=== PATIENT | female | born 1960 | race Caucasian/White ===

== ENCOUNTER 2019-08-14 21:57 | Emergency (ER) | payer MEDICARE, OTHER ==
[~2019-08-14] VITALS: Ht 157.5 cm; Wt 64.1 kg
[2019-08-14] MEDS ORDERED: NS IV 1000 ML 1,000 ML IV ONE (22:30)
--- NOTE | 2019-08-14 22:38 | ED Neurological Problem ---
General Chief Complaint: Respiratory Problems Stated Complaint: RIGHT SIDE OF FACE NUMB/TROUBLE BREATHING Nursing Triage Note: pt states soa started 1 hr ago while out walking her dog, pt states she walked to a friends house 30 minutes ago with co tongue numbness. pt states she has been off of her bipolar medication for 1 month Nursing Sepsis Screen: No Definite Risk Source: patient, family History of Present Illness Date Seen by Provider: Aug 14, 2019 Time Seen by Provider: 22:02 Initial Comments 59-year-old female presents to the emergency room. Approximately one hour ago the patient was walking her dog and said that she experienced right-sided weakness and right numbness of her tongue and face. She has no prior history of trauma and no prior history of similar events. She states that her father at the age of 41 after 7 strokes. Patient has stopped taking her medication for her bipolar psychoses about one month ago. Patient admits to having some kind of cardiac problem but has no recollection as to what problem she had. Her EKG does show abnormal R-wave progression with early transition and inferior wall IL because of a Q-wave in RF and III. patient continues reports that she has numbness on her right face but has no upper extremity drift and holding her arms up no abnormality on evaluation of cranial nerves and no discoordination on assessment in the exam room. Patient has given informed consent for diagnostic and therapeutic services. Should be noted that this dictation utilizes [employer] software. Evidence of been made to review all errors however some errors have been able to penetrate the review process. This is not an intentional event. If there is any questions regarding this dictation please contact Dominik Salguero DO Location Injury Occurred: old side while walking her dog Timing/Duration: 1 hour Severity: mild Associated Symptoms: confusion, fatigue, weakness, other (patient reports some sensation of right-sided weakness and paresthesias especially on her right ton annette and her right face) Labs are starting to come in patient's lactic acid is 2.55 consistent with dehydration. She has no evidence of infection. CT scan without infusion reveals no hemorrhage no edema involutional changes or old lacunar changes. Ventricles no ventriculomegaly bones and joints no acute fracture or soft tissues unremarkable sinuses no acute sinusitis mastoid air cells no mastoid effusion impression no acute intracranial process. Patient is not progressing and any signs or symptoms of ischemic changes in the brain. She did present as dehydrated and we will continue to rehydrate the patient has regarding further labs Allergies and Home Medications Allergies Coded Allergies: Sulfa (Sulfonamide Antibiotics) (Verified Allergy, Unknown, 08/14/19) Patient Home Medication List Home Medication List Reviewed: Yes Review of Systems Review of Systems Constitutional: malaise, weakness (right sided over the last hour) Eyes: No Symptoms Reported, Other (patient does have bilateral arcus senilis) Ears, Nose, Mouth, Throat: no symptoms reported (however she states that she feels numbness on the right side of her tongue and the right face. When using motor assessment she has no deficits or lateralizing signs) Respiratory: no symptoms reported Cardiovascular: no symptoms reported Gastrointestinal: no symptoms reported Genitourinary: no symptoms reported Musculoskeletal: other (patient reports numbness on the right upper extremities and weakness in the right upper extremity and right face and right tongue) Skin: no symptoms reported (no skin lesions identified) Psychiatric/Neurological: Anxiety, Depressed (bipolar depression history and has not taken her antipsychotic medications for over one month. Patient states she knows that she should continue with her psychiatric care has no suicidal or homicidal ideation. Insight and judgment appears to be somewhat blunted her thought process is illogical and nonlinear) Endocrine: No Symptoms Reported Hematologic/Lymphatic: No Symptoms Reported Past Qtoqwhz-Lxhwhv-Dgudvh Hx Past Med/Social Hx: Reviewed Nursing Past Med/Soc Hx Patient Social History Alcohol Use: Denies Use Recreational Drug Use: No Smoking Status: Current Everyday Smoker Type Used: Cigarettes 2nd Hand Smoke Exposure: No Recent Foreign Travel: No Contact w/Someone Who Travel: No Recent Infectious Disease Expo: No Recent Hopitalizations: No Physical Abuse: No Sexual Abuse: No Mistreated: No Fear: No Seasonal Allergies Seasonal Allergies: No Past Medical History Surgeries: Yes Angioplasty, Hysterectomy Respiratory: Yes COPD Cardiac: Yes Heart Attack, 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 Neurological: No Genitourinary: No Musculoskeletal: No Endocrine: No HEENT: No Cancer: No Psychosocial: Yes Bipolar, Depression Integumentary: No Blood Disorders: No Family Medical History Reviewed Nursing Family Hx Physical Exam Vital Signs Vital Signs - First Documented 08/14/19 22:22 Temp 36.0 Pulse 70 B/P (MAP) 194/99 (130) Pulse Ox 100 O2 Delivery Room Air Capillary Refill : Less Than 3 Seconds Height, Weight, BMI Height: '" Weight: lbs. oz. kg; 25.00 BMI Method: General Appearance: WD/WN, moderate distress (or feelings that she may have a stroke and ruminates about her father who is 7 strokes before he ) HEENT: PERRL/EOMI (bilateral arcus senilis), normal ENT inspection, pharynx normal Neck: non-tender, full range of motion, supple, normal inspection Respiratory: chest non-tender, lungs clear, normal breath sounds, no respiratory distress, no accessory muscle use Cardiovascular: normal peripheral pulses, regular rate, rhythm, no edema, no gallop, no JVD, no murmur Peripheral Pulses: 2+ Carotid (R), 2+ Carotid (L) Gastrointestinal: normal bowel sounds, non tender, soft, no organomegaly, no pulsatile mass Back: normal inspection, no CVA tenderness, no vertebral tenderness Extremities: normal range of motion, non-tender, normal inspection, no pedal edema, no calf tenderness, normal capillary refill, other (patient reports that she perceives her right side is weaker although muscle strength testing shows normal muscle strength on the right and left sides) 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, no motor/sensory deficits, alert, normal mood/affect, oriented x 3, other (CT scan reveals brain has no hemorrhage no edema no involutional changes and old record ventricles no ventriculomegaly bones and joints no acute fracture soft tissues unremarkable sinuses no acute sinusitis mastoid air cells no mastoid effusion) Crainal Nerves: normal speech, PERRL Coordination/Gait: normal gait Motor/Sensory: no motor deficit, no sensory deficit, no pronator drift Reflexes: 2+ Bicep (R), 2+ Bicep (L), 2+ Knee (R), 2+ Knee (L) Skin: normal color, warm/dry Lymphatic: no adenopathy Stroke Onset of Symptoms Date of Onset of Symptoms: Aug 14, 2019 Time of Symptom Onset: 18:00 Onset of Symptoms: No Symptoms onset unknown: Yes NIH Stroke Scale Assessment Select: Initial Level of Consciousness: 0=Alert (0), Level of Consciousness-Questions: 0=Answers both month/age (0), LOC Commands: 0=Performs both tasks (0), Gaze: Normal (0), Visual Mclaughlin: 0=No visual loss (0), Facial Movement (Facial Paresis): 0=Normal symmetrical mnt (0), Motor Function-Arms Right: 0=No drift (0), Motor Function-Arms Left: 0=No drift (0), Motor Function-Legs Right: 0=No drift (0), Motor Function-Legs Left: 0=No drift (0), Limb Ataxia: 0=Absent (0), Sensory: 1=Mild to Moderate loss (1), Best Language: 0=No aphasia (0), Dysarthria: 0=Normal (0), Extinction & Inattention: 0=No abnormality (0), Total: 1 Stroke Thrombolytic Exclusion Age 18 or Over: Yes Acute intenal hemorrhage: No History of CVA: No Uncontrolled Coagulation Defec: No Intracranial Hemorrhage: No Severe 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: No GI or Bleed: No Subarachnoid Hemorrhage: No Intracranial Neoplasm/Aneurysm: No Oral Anticoagulants: No Surgery or Trauma: No Puncture of Non-Compressible V: No Recent CPR: No Diabetic Hemorrhagic Retinopat: No Organ Biopsy: No Recent Obstetric Delivery: No Glucose: No Significant Hepatic Dysfunctio: No NIH Stoke Scale >22: No Bacterial Endocarditis: No Pericarditis: No Improving Symptoms: Yes Platelets: No TPA Contraindication: Yes IV - TPa Received IV - TPa Procedure Performed?: No Focused Exam Lactate Level 08/14/19 22:10: Lactic Acid Level 2.55*H Lactic Acid Level Laboratory Tests Test 08/14/19 22:10 Lactic Acid Level 2.55 MMOL/L (0.50-2.00) *H Progress/Results/Core Measures Results/Orders Lab Results Laboratory Tests Test 08/14/19 22:10 Range/Units White Blood Count 10.5 4.3-11.0 10^3/uL Red Blood Count 4.59 4.35-5.85 10^6/uL Hemoglobin 14.6 11.5-16.0 G/DL Hematocrit 42 35-52 % Mean Corpuscular Volume 91 80-99 FL Mean Corpuscular Hemoglobin 32 25-34 PG Mean Corpuscular Hemoglobin Concent 35 32-36 G/DL Red Cell Distribution Width 13.1 10.0-14.5 % Platelet Count 346 130-400 10^3/uL Mean Platelet Volume 9.1 7.4-10.4 FL Neutrophils (%) (Auto) 44 42-75 % Lymphocytes (%) (Auto) 50 H 12-44 % Monocytes (%) (Auto) 4 0-12 % Eosinophils (%) (Auto) 2 0-10 % Basophils (%) (Auto) 1 0-10 % Neutrophils # (Auto) 4.6 1.8-7.8 X 10^3 Lymphocytes # (Auto) 5.2 H 1.0-4.0 X 10^3 Monocytes # (Auto) 0.4 0.0-1.0 X 10^3 Eosinophils # (Auto) 0.2 0.0-0.3 10^3/uL Basophils # (Auto) 0.1 0.0-0.1 10^3/uL Neutrophils % (Manual) 43 % Lymphocytes % (Manual) 52 % Monocytes % (Manual) 3 % Eosinophils % (Manual) 1 % Basophils % (Manual) 1 % Platelet Estimate ADEQUATE Blood Morphology Comment NORMAL Sodium Level 138 135-145 MMOL/L Potassium Level 3.5 L 3.6-5.0 MMOL/L Chloride Level 97 L 98-107 MMOL/L Carbon Dioxide Level 24 21-32 MMOL/L Anion Gap 17 H 5-14 MMOL/L Blood Urea Nitrogen 15 7-18 MG/DL Creatinine 0.90 0.60-1.30 MG/DL Estimat Glomerular Filtration Rate > 60 BUN/Creatinine Ratio 17 Glucose Level 94 70-105 MG/DL Lactic Acid Level 2.55 *H 0.50-2.00 MMOL/L Calcium Level 10.7 H 8.5-10.1 MG/DL Corrected Calcium 8.5-10.1 MG/DL Magnesium Level 2.3 1.6-2.4 MG/DL Total Bilirubin 0.2 0.1-1.0 MG/DL Aspartate Amino Transf (AST/SGOT) 27 5-34 U/L Alanine Aminotransferase (ALT/SGPT) 24 0-55 U/L Alkaline Phosphatase 88 40-136 U/L Troponin I < 0.30 <0.30 NG/ML Total Protein 8.9 H 6.4-8.2 GM/DL Albumin 5.2 H 3.2-4.5 GM/DL Micro Results Microbiology 08/14/19 Influenza Types A,B Antigen (SERGEY) - Final, Complete My Orders Orders - DOMINIK SALGUERO DO Cbc And Manual Diff (08/14/19 22:27) Comprehensive Metabolic Panel (08/14/19 22:27) Lactic Acid Analyzer (08/14/19 22:27) Troponin I Fs (08/14/19 22:27) Influenza A And B Antigens (08/14/19 22:27) Magnesium (08/14/19 22:27) Ekg Tracing (08/14/19 22:27) Ct Head Wo (08/14/19 22:27) Chest 1 View Ap/Pa Only (08/14/19 22:27) Ns Iv 1000 Ml (Sodium Chloride 0.9%) (08/14/19 22:30) Ns Iv 1000 Ml (Sodium Chloride 0.9%) (08/14/19 23:45) Medications Given in ED Current Medications Medications Dose Ordered Sig/Geo Route Start Time Stop Time Status Last Admin Dose Admin Sodium Chloride 1,000 ml @ 100 mls/hr Q10H ONCE IV 08/14/19 22:30 08/15/19 08:29 08/14/19 22:48 100 MLS/HR Vital Signs/I&O 08/14/19 22:22 Temp 36.0 Pulse 70 B/P (MAP) 194/99 (130) Pulse Ox 100 O2 Delivery Room Air 08/15/19 00:00 Intake Total 1000 ml Balance 1000 ml Blood Pressure Mean: 130 Progress Progress Note : Time: 23:[address] scan and laboratory evaluation are being completed now. Patient did have an elevated lactate and is very dehydrated and felt much better after her first liter of fluids. She stated all the neurologic changes have resolved she has no more numbness on her right face right tongue or right upper or lower extremities. She sitting up conversing with her friend who brought her into the hospital. Second liter of fluids are running. 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 Patient states that she wants us or see her psychiatrist again after stopping her medication for bipolar psychoses for the past month. She will call tomorrow to make an appointment. Patient denies chest pain shortness of breath and a sensation of neurologic impairment or any lateralization she has no numbness in her tongue face cranial nerves appear to be intact. Has requested to be discharged home rest continue to drink fluids. Laboratory evaluation reveals a WBC of 10.5 hemoglobin of 14.6 potassium 3.5 lactate 2.55 and influenza A and B both negative believe the patient's elevation lactate is secondary to dehydration. She is about to receive her second liter in the emergency room and she is agreed to drink a minimum of 2-3 L of water per day. She has no signs of consolidation all the symptoms of her neurologic complaints have resolved in the emergency room. Patient does understand if she has recurrence of this she should return to the emergency room for further assessment and care. Patient is comfortable going home at her request and will monitor and continue with her primary care provider and her psychiatrist Initial ECG Impression Date: Aug 14, 2019 Initial ECG Impression Time: 22:11 Initial ECG Rate: 68 Initial ECG Rhythm: Normal Sinus Initial ECG Intervals: Normal (Poor R wave progression and Q in R F and III.) Departure Impression Primary Impression: Dehydration Additional Impressions: Bipolar 1 disorder Transient neurological symptoms Arcus senilis of both eyes Disposition: 01 HOME, SELF-CARE Condition: Stable Departure-Patient Inst. Referrals: NO,LOCAL PHYSICIAN (PCP/Family) Primary Care Physician Patient agrees to follow up with the primary care provider and with her psychiatric provider. She has not taken her bipolar medications for over a month. She also understands that she needs to hydrate Patient Instructions: Dehydration, Adult (DC), Bipolar Disorder DOMINIK SALGUERO DO Aug 14, 2019 22:37
[2019-08-14 23:19] LABS: HEMATOCRIT 42 % (35-52); HEMOGLOBIN 14.6 G/DL (11.5-16.0); MEAN CORPUSCULAR HEMOGLOBIN 32 PG (25-34); MEAN CORPUSCULAR HGB CONC 35 G/DL (32-36); MEAN CORPUSCULAR VOLUME 91 FL (80-99); MEAN PLATELET VOLUME 9.1 FL (7.4-10.4); PLATELET COUNT 346 10^3/uL (130-400); RED CELL DISTRIBUTION WIDTH 13.1 % (10.0-14.5); WHITE BLOOD COUNT 10.5 10^3/uL (4.3-11.0)
[2019-08-14 23:20] LABS: BASOPHILS # (AUTO) 0.1 10^3/uL (0.0-0.1); BASOPHILS % (AUTO) 1 % (0-10); BASOPHILS % (MANUAL) 1 %; EOSINOPHILS # (AUTO) 0.2 10^3/uL (0.0-0.3); EOSINOPHILS % (AUTO) 2 % (0-10); EOSINOPHILS % (MANUAL) 1 %; LYMPHOCYTES # (AUTO) 5.2 X 10^3 (1.0-4.0); LYMPHOCYTES % (AUTO) 50 % (12-44); LYMPHOCYTES % (MANUAL) 52 %; MONOCYTES # (AUTO) 0.4 X 10^3 (0.0-1.0); MONOCYTES % (AUTO) 4 % (0-12); MONOCYTES % (MANUAL) 3 %; NEUTROPHILS # (AUTO) 4.6 X 10^3 (1.8-7.8); NEUTROPHILS % (AUTO) 44 % (42-75); NEUTROPHILS % (MANUAL) 43 %
[2019-08-14 23:21] LABS: PLATELET ESTIMATE ADEQUATE; RBC MORPH NORMAL
[2019-08-14 23:30] LABS: BUN/CREATININE RATIO 17; CARBON DIOXIDE 24 MMOL/L (21-32); CHLORIDE 97 MMOL/L (98-107); GFR ESTIMATED > 60; GLUCOSE 94 MG/DL (70-105); POTASSIUM 3.5 MMOL/L (3.6-5.0); SODIUM 138 MMOL/L (135-145)
[2019-08-14 23:31] LABS: ALANINE AMINOTRANSFERASE 24 U/L (0-55); ALKALINE PHOSPHATASE 88 U/L (40-136); BILIRUBIN,TOTAL 0.2 MG/DL (0.1-1.0); CALCIUM 10.7 MG/DL (8.5-10.1); MAGNESIUM 2.3 MG/DL (1.6-2.4)
[2019-08-14 23:32] LABS: ALBUMIN 5.2 GM/DL (3.2-4.5); TOTAL PROTEIN 8.9 GM/DL (6.4-8.2)
[2019-08-14] MEDS ORDERED: NS IV 1000 ML 1,000 ML IV SCH (23:45)
[2019-08-15 00:11] VITALS: BP 151/79
--- NOTE | 2019-08-15 07:54 | Diagnostic Imaging Report ---
PROCEDURE: CT head without contrast. TECHNIQUE: Multiple contiguous axial images were obtained through the brain without the use of intravenous contrast. Auto Exposure Controls were utilized during the CT exam to meet ALARA standards for radiation dose reduction. INDICATION: Altered mental status. No prior examinations are available for comparison. FINDINGS: The ventricles and sulci are within normal limits. There is no hydrocephalus or cerebral edema. There is no midline shift or mass effect. There is no intracranial mass, hemorrhage, or extra-axial fluid collection. The visualized paranasal sinuses and mastoid air cells are clear. There are no regional areas of decreased attenuation appreciated to suggest an acute CVA. IMPRESSION: No acute intracranial abnormality. Dictated by: Dictated on workstation # [id number]
--- NOTE | 2019-08-15 07:54 | Diagnostic Imaging Report ---
INDICATION: Shortness of breath. FINDINGS: The heart size, mediastinal configuration, and pulmonary vascularity are within normal limits. There is no pleural effusion, pneumothorax, or pneumonia. The osseous structures are unremarkable. IMPRESSION: No acute cardiopulmonary abnormality. Dictated by: Dictated on workstation # [id number]
== END 2019-08-15 00:11 | disposition home or self-care (01) ==
LOC: EDUNIT# 21:57 → ER FS 22:00
DX: E86.0 Dehydration (principal); F31.9 Bipolar disorder, unspecified; R29.818 Other symptoms and signs involving the nervous system; H18.413 Arcus senilis, bilateral; I10 Essential (primary) hypertension; I25.2 Old myocardial infarction; F17.210 Nicotine dependence, cigarettes, uncomplicated; Z88.2 Allergy status to sulfonamides; Z90.710 Acquired absence of both cervix and uterus
CPT/HCPCS: 36415; 70450; 71045; 80053; 83605; 83735; 84484; 85007; 85027; 87804; 93005

== ENCOUNTER 2021-01-09 15:30 | Emergency (ER) | payer MEDICARE ==
[~2021-01-09] VITALS: Ht 157 cm; Wt 70.0 kg
[2021-01-09 15:32] VITALS: BP 126/89
[2021-01-09] MEDS ORDERED: ASPIRIN 81 MG CHEW (CHILDREN'S ASA) PO ONE (15:45)
[2021-01-09] MEDS ORDERED: ONDANSETRON 4 MG/2 ML (SDV) Z0FRAN IVP ONE (15:45)
[2021-01-09] MEDS ORDERED: RT-ALBUTEROL/IPRATROPIUM 3 ML (DUONEB) VIAL INH ONE (15:45)
[2021-01-09] MEDS ORDERED: methylPREDNISolone 40 MG/ML (Solu-MEDROL) VIAL IV ONE (15:45)
--- NOTE | 2021-01-09 15:45 | ED Respiratory ---
General Chief Complaint: Respiratory Problems Stated Complaint: CHEST PAIN; SOB History of Present Illness Date Seen by Provider: Jan 09, 2021 Time Seen by Provider: 15:40 Initial Comments 60-year-old female with past medical history significant for COPD presents with shortness of air for the past 2 days. Using her inhalers without any significant relief. Feels chest tightness in her lower chest bilaterally with some expiratory wheezing. She still smokes half pack daily. Cough nonproductive. Denies abdominal pain, nausea vomiting, fever or chills. Allergies and Home Medications Allergies Coded Allergies: Sulfa (Sulfonamide Antibiotics) (Verified Allergy, Unknown, 08/14/19) Home Medications Doxycycline Hyclate 100 Mg Tablet, 100 MG PO BID Prescribed by: JUAN DIEGO CASTAÑEDA on 01/09/21 161 Fluticasone/Salmeterol 1 Each Blst.w.dev, 1 EACH IH BID Prescribed by: JUAN DIEGO CASTAÑEDA on 01/09/21 161 Ondansetron 4 Mg Tab.rapdis, 4 MG PO TID Prescribed by: JUAN DIEGO CASTAÑEDA on 01/09/21 161 Prednisone 50 Mg Tab, 50 MG PO DAILY Prescribed by: JUAN DIEGO GRIERSTKYRIE on 01/09/21 161 Patient Home Medication List Home Medication List Reviewed: Yes Review of Systems Review of Systems Constitutional: No fever, No malaise, No weakness EENTM: no symptoms reported Respiratory: cough; No hemoptysis; short of breath; No stridor; wheezing Cardiovascular: see HPI, chest pain; No edema, No palpitations, No syncope Gastrointestinal: No abdominal pain, No nausea, No vomiting Musculoskeletal: no symptoms reported Skin: No change in color, No rash Past Hqussjr-Cadccd-Hfzrhb Hx Past Med/Social Hx: Reviewed Nursing Past Med/Soc Hx Patient Social History Type Used: Cigarettes 2nd Hand Smoke Exposure: No Recent Hopitalizations: No Seasonal Allergies Seasonal Allergies: No Past Medical History Surgeries: Yes Angioplasty, Hysterectomy Respiratory: Yes COPD Cardiac: Yes Heart Attack, 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 Neurological: No Genitourinary: No Musculoskeletal: No Endocrine: No HEENT: No Cancer: No Psychosocial: Yes Bipolar, Depression Integumentary: No Blood Disorders: No Physical Exam Vital Signs - First Documented 01/09/21 15:32 Temp 35.8 Pulse 72 Resp 18 B/P (MAP) 126/89 (101) Pulse Ox 95 O2 Delivery Room Air Capillary Refill : Height: '" Weight: lbs. oz. kg; 25.00 BMI Method: General Appearance: WD/WN, no apparent distress HEENT: PERRL/EOMI, normal ENT inspection Neck: non-tender, supple Respiratory: chest non-tender, no respiratory distress, no accessory muscle use, wheezing (faint end expiratory w fair aeration) Cardiovascular: regular rate, rhythm, no edema, no JVD Gastrointestinal: normal bowel sounds, non tender, soft Extremities: non-tender, no pedal edema Neurologic/Psychiatric: no motor/sensory deficits, alert, normal mood/affect, o riented x 3 Skin: normal color, warm/dry Progress/Results/Core Measures Suspected Sepsis SIRS Temperature: Pulse: Respiratory Rate: Laboratory Tests 01/09/21 15:40: White Blood Count 8.3 Blood Pressure / Mean: Laboratory Tests 01/09/21 15:40: Creatinine 1.04, Platelet Count 223, Total Bilirubin 0.2 Results/Orders Lab Results Laboratory Tests Test 01/09/21 15:40 Range/Units White Blood Count 8.3 4.3-11.0 10^3/uL Red Blood Count 4.42 4.35-5.85 10^6/uL Hemoglobin 13.5 11.5-16.0 G/DL Hematocrit 40 35-52 % Mean Corpuscular Volume 89 80-99 FL Mean Corpuscular Hemoglobin 31 25-34 PG Mean Corpuscular Hemoglobin Concent 34 32-36 G/DL Red Cell Distribution Width 12.2 10.0-14.5 % Platelet Count 223 130-400 10^3/uL Mean Platelet Volume 9.8 7.4-10.4 FL Immature Granulocyte % (Auto) 0 % Neutrophils (%) (Auto) 59 42-75 % Lymphocytes (%) (Auto) 31 12-44 % Monocytes (%) (Auto) 7 0-12 % Eosinophils (%) (Auto) 2 0-10 % Basophils (%) (Auto) 1 0-10 % Neutrophils # (Auto) 5.0 1.8-7.8 X 10^3 Lymphocytes # (Auto) 2.6 1.0-4.0 X 10^3 Monocytes # (Auto) 0.6 0.0-1.0 X 10^3 Eosinophils # (Auto) 0.1 0.0-0.3 10^3/uL Basophils # (Auto) 0.0 0.0-0.1 10^3/uL Immature Granulocyte # (Auto) 0.0 0.0-0.1 10^3/uL Sodium Level 139 135-145 MMOL/L Potassium Level 3.1 L 3.6-5.0 MMOL/L Chloride Level 93 L 98-107 MMOL/L Carbon Dioxide Level 37 H 21-32 MMOL/L Anion Gap 9 5-14 MMOL/L Blood Urea Nitrogen 10 7-18 MG/DL Creatinine 1.04 0.60-1.30 MG/DL Estimat Glomerular Filtration Rate 54 BUN/Creatinine Ratio 10 Glucose Level 99 70-105 MG/DL Calcium Level 9.6 8.5-10.1 MG/DL Corrected Calcium 9.4 8.5-10.1 MG/DL Total Bilirubin 0.2 0.1-1.0 MG/DL Aspartate Amino Transf (AST/SGOT) 15 5-34 U/L Alanine Aminotransferase (ALT/SGPT) 5 0-55 U/L Alkaline Phosphatase 65 40-136 U/L Troponin I < 0.30 <0.30 NG/ML Total Protein 7.4 6.4-8.2 GM/DL Albumin 4.2 3.2-4.5 GM/DL My Orders Orders - JUAN DIEGO CASTAÑEDA DO Ed Iv/Invasive Line Start (01/09/21 15:40) Chest 1 View Ap/Pa Only (01/09/21 15:40) Ekg Tracing (01/09/21 15:40) Troponin I Fs (01/09/21 15:40) Cbc With Automated Diff (01/09/21 15:40) Comprehensive Metabolic Panel (01/09/21 15:40) Albuterol/Ipra Inhalation Soln (Duoneb I (01/09/21 15:45) Svn Small Volume Nebulizer (01/09/21 15:41) Methylprednisolone Sod Succ (Solu-Medrol (01/09/21 15:45) Aspirin Chewable Tablet (Baby Aspirin Ch (01/09/21 15:45) Ondansetron Injection (Zofran Injectio (01/09/21 15:45) Medications Given in ED Current Medications Medications Dose Ordered Sig/Ego Route Start Time Stop Time Status Last Admin Dose Admin Albuterol/ Ipratropium 3 ml ONCE ONCE INH 01/09/21 15:45 01/09/21 15:46 DC 01/09/21 15:47 3 ML Aspirin 324 mg ONCE ONCE PO 01/09/21 15:45 01/09/21 15:47 DC 01/09/21 15:51 324 MG Methylprednisolone Sodium Succinate 80 mg ONCE ONCE IV 01/09/21 15:45 01/09/21 15:46 DC 01/09/21 15:47 80 MG Ondansetron HCl 4 mg ONCE ONCE IVP 01/09/21 15:45 01/09/21 15:47 DC 01/09/21 15:51 4 MG Vital Signs/I&O 01/09/21 15:32 Temp 35.8 Pulse 72 Resp 18 B/P (MAP) 126/89 (101) Pulse Ox 95 O2 Delivery Room Air Capillary Refill : ECG Initial ECG Impression Date: Jan 09, 2021 Initial ECG Impression Time: 15:35 Initial ECG Rate: 67 Initial ECG Rhythm: Normal Sinus Initial ECG Intervals: Normal Initial ECG Impression: Nonspecific Changes Initial ECG Comparisson: No Previous ECG Available Comment no acute ischemic changes Departure Impression Primary Impression: COPD with exacerbation Disposition: HOME, SELF-CARE Condition: Improved Departure-Patient Inst. Decision time for Depature: 16:17 Referrals: NO,LOCAL PHYSICIAN (PCP/Family) Primary Care Physician Patient Instructions: COPD Exacerbation, Adult ED Add. Discharge Instructions: Call your PCP tomorrow to arrange a follow up appointment in 1 week. Return to the ER if your symptoms are getting worse despite treatment. All discharge instructions reviewed with patient and/or family. Voiced understanding. Scripts Potassium Chloride (Potassium Chloride) 20 Meq Tab.er.prt 20 MEQ PO DAILY, #7 TAB Prov: MARVELSTINEJUAN DIEGO DO 01/09/21 Fluticasone/Salmeterol (Advair 250-50 Diskus) 1 Each Blst.w.dev 1 EACH IH BID, #1 INHALER Prov: MARVELSTINEJUAN DIEGO DO 01/09/21 Ondansetron (Ondansetron Odt) 4 Mg Tab.rapdis 4 MG PO TID for Nausea, #10 TAB Prov: ROVENSTINEJUAN DIEGO L DO 01/09/21 Doxycycline Hyclate (Doxycycline Hyclate) 100 Mg Tablet 100 MG PO BID, #14 TAB 0 Refills Prov: JUAN DIEGO CASTAÑEDA DO 01/09/21 Prednisone (Prednisone) 50 Mg Tab 50 MG PO DAILY, #7 TAB Prov: JUAN DIEGO CASTAÑEDA DO 01/09/21 JUAN DIEGO CASTAÑEDA DO Jan 09, 2021 15:45
[2021-01-09 15:56] LABS: HEMATOCRIT 40 % (35-52); HEMOGLOBIN 13.5 G/DL (11.5-16.0); MEAN CORPUSCULAR HEMOGLOBIN 31 PG (25-34); MEAN CORPUSCULAR HGB CONC 34 G/DL (32-36); MEAN CORPUSCULAR VOLUME 89 FL (80-99); PLATELET COUNT 223 10^3/uL (130-400); WHITE BLOOD COUNT 8.3 10^3/uL (4.3-11.0)
[2021-01-09 15:57] LABS: BASOPHILS % (AUTO) 1 % (0-10); EOSINOPHILS # (AUTO) 0.1 10^3/uL (0.0-0.3); EOSINOPHILS % (AUTO) 2 % (0-10); LYMPHOCYTES # (AUTO) 2.6 X 10^3 (1.0-4.0); LYMPHOCYTES % (AUTO) 31 % (12-44); MEAN PLATELET VOLUME 9.8 FL (7.4-10.4); MONOCYTES # (AUTO) 0.6 X 10^3 (0.0-1.0); MONOCYTES % (AUTO) 7 % (0-12); NEUTROPHILS % (AUTO) 59 % (42-75)
[2021-01-09 16:08] LABS: ALANINE AMINOTRANSFERASE 5 U/L (0-55); ALKALINE PHOSPHATASE 65 U/L (40-136); BILIRUBIN,TOTAL 0.2 MG/DL (0.1-1.0); BUN/CREATININE RATIO 10; CALCIUM 9.6 MG/DL (8.5-10.1); CARBON DIOXIDE 37 MMOL/L (21-32); CHLORIDE 93 MMOL/L (98-107); CREATININE SERUM 1.04 MG/DL (0.60-1.30); GFR ESTIMATED 54; GLUCOSE 99 MG/DL (70-105); POTASSIUM 3.1 MMOL/L (3.6-5.0); SODIUM 139 MMOL/L (135-145)
[2021-01-09 16:09] LABS: ALBUMIN 4.2 GM/DL (3.2-4.5); TOTAL PROTEIN 7.4 GM/DL (6.4-8.2)
[2021-01-09] MEDS ORDERED: ONDA4TAB11 PO (16:16)
[2021-01-09] MEDS ORDERED: DOXY100T2 PO (16:16)
[2021-01-09] MEDS ORDERED: PRD50T PO (16:16)
[2021-01-09] MEDS ORDERED: FLUT1DIS26 IH (16:17)
[2021-01-09] MEDS ORDERED: POTA20TA15 PO (16:26)
--- NOTE | 2021-01-09 17:43 | Diagnostic Imaging Report ---
EXAMINATION: Chest 1 view HISTORY: Shortness of breath and chest pain COMPARISON: 08/14/2019 FINDINGS: The patient is mildly rotated which limits evaluation. Heart size and pulmonary vasculature are normal. The lungs are clear without consolidation, pleural effusion, or pneumothorax. The osseous structures are intact. IMPRESSION: 1. No acute radiographic abnormality in the chest. Dictated by: Dictated on workstation # [id number]
== END 2021-01-09 16:26 | disposition home or self-care (01) ==
LOC: EDUNIT# 15:30 → ER FS 15:38
DX: J44.1 Chronic obstructive pulmonary disease with (acute) exacerbation (principal); I25.2 Old myocardial infarction; I10 Essential (primary) hypertension; F17.210 Nicotine dependence, cigarettes, uncomplicated
CPT/HCPCS: 36415; 71045; 80053; 84484; 85025; 93005

== ENCOUNTER 2021-09-06 16:31 | Inpatient (IN) | payer MEDICARE ==
[~2021-09-06] VITALS: Ht 157.5 cm; Wt 72.9 kg
[~2021-09-06 16:31] MED LIST: DOXY100T2 PO; FLUT1DIS26 IH; ONDA4TAB11 PO; POTA-179 PO; PRD50T PO
[2021-09-06 16:44] VITALS: BP_SYST 73; BP_SYST 85; BP_SYST 88; BP_DIAS 51; BP_DIAS 54; BP_DIAS 61
[2021-09-06] MEDS ORDERED: NS IV 1000 ML 1,000 ML IV STA ×2 (16:49→17:55)
[2021-09-06 16:55] LABS: BASOPHILS % (AUTO) 0 % (0-10); EOSINOPHILS % (AUTO) 0 % (0-10); HEMATOCRIT 37 % (35-52); HEMOGLOBIN 12.8 g/dL (11.5-16.0); LYMPHOCYTES # (AUTO) 1.5 10^3/uL (1.0-4.0); LYMPHOCYTES % (AUTO) 38 % (12-44); MEAN CORPUSCULAR HEMOGLOBIN 29 pg (25-34); MEAN CORPUSCULAR HGB CONC 35 g/dL (32-36); MEAN CORPUSCULAR VOLUME 84 fL (80-99); MEAN PLATELET VOLUME 10.4 fL (9.0-12.2); MONOCYTES # (AUTO) 0.3 10^3/uL (0.0-1.0); MONOCYTES % (AUTO) 8 % (0-12); NEUTROPHILS # (AUTO) 2.1 10^3/uL (1.8-7.8); NEUTROPHILS % (AUTO) 53 % (42-75); PLATELET COUNT 141 10^3/uL (130-400); WHITE BLOOD COUNT 3.9 10^3/uL (4.3-11.0)
--- NOTE | 2021-09-06 16:58 | ED General ---
General Chief Complaint: Cough/Cold/Flu Symptoms Stated Complaint: FALL Source of Information: Patient, EMS, Old Records History of Present Illness Date Seen by Provider: Sep 06, 2021 Time Seen by Provider: 16:31 Initial Comments 61-year-old female presenting by EMS with complaints of having been dizzy and lightheaded for the last 2 to 3 weeks. She also states that she has had diarrhea for the last 2 weeks. She has been running a fever off-and-on over the last few weeks. She states that the highest it has gotten was 100.2 Fahrenheit. She has had increased cough and congestion. She uses oxygen at home all the time. She has COPD. She has not followed up with Dr. Hanson her primary care provider over this last several weeks while she has been sick. She states that sometime overnight she had gotten up got dizzy and fell backward. She hit the back of her head and states that she lost consciousness for some period of time but she is unsure how long. She was able to get herself back up and has some mild pain to the back of her head. She has not gone to see anyone throughout the day her checked with anyone last night when she fell and got knocked out. However this evening at 4:00 pm she called EMS to be evaluated. Timing/Duration: Intermittent (about 3 weeks) Severity: Moderate Modifying Factors: worse with Movement (standing makes her dizzy) Associated Systoms: No Chest Pain; Cough (chronic but worse than usual in last few weeks); No Diaphoresis; Fever/Chills, Headaches; No Loss of Appetite; Malaise; No Nausea/Vomiting, No Rash, No Seizure; Shortness of Air (chronic but worse in last few weeks), Syncope (fell last night and lost consciousness when hit her head), Weakness (generalized) Allergies and Home Medications Allergies Coded Allergies: Sulfa (Sulfonamide Antibiotics) (Verified Allergy, Unknown, 08/14/19) Patient Home Medication List Home Medication List Reviewed: Yes Doxycycline Hyclate (Doxycycline Hyclate) 100 Mg Tablet, 100 MG PO BID Prescribed by: JUAN DIEGO CASTAÑEDA on 01/09/211615 Fluticasone/Salmeterol (Advair 250-50 Diskus) 1 Each Blst.w.dev, 1 EACH IH BID Prescribed by: JUAN DIEGO CASTAÑEDA on 6/23/21 1617 Ondansetron (Ondansetron Odt) 4 Mg Tab.rapdis, 4 MG PO TID Prescribed by: JUAN DIEGO GRIERSTKYRIE on 01/09/21 161 Potassium Chloride (Potassium Chloride) 20 Meq Tab.er.prt, 20 MEQ PO DAILY Prescribed by: JUAN DIEGO GRIERSTKYRIE on 01/09/21 162 Prednisone (Prednisone) 50 Mg Tab, 50 MG PO DAILY Prescribed by: JUAN DIEGO GRIERSTKYRIE on 01/09/21 161 Review of Systems Review of Systems Constitutional: No chills; dizziness (with standing and changing positions), fever, malaise EENTM: No vision loss, No epistaxis, No nose congestion Respiratory: cough, dyspnea on exertion, short of breath; No stridor; wheezing Cardiovascular: No chest pain Gastrointestinal: diarrhea; No nausea, No vomiting Genitourinary: No dysuria Musculoskeletal: no symptoms reported Skin: No rash Psychiatric/Neurological: Headache (occipital where she hit her head); Denies N umbness, Denies Paresthesia Hematologic/Lymphatic: Denies Blood Clots Past [id number]-Alxtsx-Vresmk Hx Patient Social History Tobacco Use?: Yes Tobacco type used: Cigarettes Smoking Status: Current Everyday Smoker Use of E-Cig and/or Vaping dev: No Substance use?: No Alcohol Use?: No Pt feels they are or have been: No Immunizations Up To Date Influenza Vaccine Up-to-Date: Yes; Up-to-Date First/Initial COVID19 Vaccinat: Yes Second COVID19 Vaccination Chaz: Yes COVID19 Vaccine Manager Progressive Care: [place] Seasonal Allergies Seasonal Allergies: No Past Medical History Surgery/Hospitalization HX: GERD; Depression; High Cholesterol; DM; Anxiety; HTN; COPD; Seiz Surgeries: Yes Coronary Stent, Hysterectomy Respiratory: Yes Asthma, Chronic Bronchitis, COPD, Emphysema Cardiac: Yes Heart Attack, High Cholesterol, 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 Neurological: No [employer] History: Hysterectomy Genitourinary: No Gastrointestinal: No Musculoskeletal: Yes Back Injury, Chronic Back Pain Endocrine: No HEENT: No Cancer: No Psychosocial: Yes Anxiety, Bipolar, Depression Integumentary: No Blood Disorders: No Physical Exam Vital Signs Vital Signs - First Documented 09/06/21 16:31 Temp 36.9 Pulse 78 Resp 18 B/P (MAP) 97/62 (74) Pulse Ox 99 O2 Delivery Nasal Cannula O2 Flow Rate 3.00 Capillary Refill : Height, Weight, BMI Height: '" Weight: lbs. oz. kg; 28.00 BMI Method: General Appearance: No Apparent Distress HEENT: PERRL/EOMI, Pharynx Normal, Other (Negative powell sign, negative raccoon sign, no CSF otorrhea, no CSF rhinorrhea, no hemotympanum. 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 Norm as Tested Skin: Normal Color, Warm/Dry Focused Exam Lactate Level 09/06/21 16:44: Lactic Acid Level 1.22 Lactic Acid Level Laboratory Tests Test 09/06/21 16:44 Lactic Acid Level 1.22 MMOL/L (0.50-2.00) Progress/Results/Core Measures Suspected Sepsis SIRS Temperature: Pulse: Respiratory Rate: Laboratory Tests 09/06/21 16:44: White Blood Count 3.9L Blood Pressure / Mean: 09/06/21 16:44: Lactic Acid Level 1.22 Laboratory Tests 09/06/21 16:44: Creatinine 3.36H, INR Comment 0.9, Platelet Count 141, Total Bilirubin 0.2 Results/Orders Lab Results Laboratory Tests Test 09/06/21 16:38 09/06/21 16:44 Range/Units Urine Color DARK YELLOW Urine Clarity CLOUDY Urine pH 5.0 5-9 Urine Specific [place]man >=1.030 1.016-1.022 Urine Protein 1+ H NEGATIVE Urine Glucose (UA) NEGATIVE NEGATIVE Urine Ketones NEGATIVE NEGATIVE Urine Nitrite NEGATIVE NEGATIVE Urine Bilirubin NEGATIVE NEGATIVE Urine Urobilinogen 0.2 < = 1.0 MG/DL Urine Leukocyte Esterase TRACE H NEGATIVE Urine RBC (Auto) TRACE-I H NEGATIVE Urine RBC NONE /HPF Urine WBC >100 H /HPF Urine Crystals NONE /LPF Urine Bacteria LARGE H /HPF Urine Casts PRESENT /LPF Urine Granular Casts 10-25 H /LPF Urine Mucus NEGATIVE /LPF Urine Culture Indicated YES White Blood Count 3.9 L 4.3-11.0 10^3/uL Red Blood Count 4.35 3.80-5.11 10^6/uL Hemoglobin 12.8 11.5-16.0 g/dL Hematocrit 37 35-52 % Mean Corpuscular Volume 84 80-99 fL Mean Corpuscular Hemoglobin 29 25-34 pg Mean Corpuscular Hemoglobin Concent 35 32-36 g/dL Red Cell Distribution Width 13.2 10.0-14.5 % Platelet Count 141 130-400 10^3/uL Mean Platelet Volume 10.4 9.0-12.2 fL Immature Granulocyte % (Auto) 1 % Neutrophils (%) (Auto) 53 42-75 % Lymphocytes (%) (Auto) 38 12-44 % Monocytes (%) (Auto) 8 0-12 % Eosinophils (%) (Auto) 0 0-10 % Basophils (%) (Auto) 0 0-10 % Neutrophils # (Auto) 2.1 1.8-7.8 10^3/uL Lymphocytes # (Auto) 1.5 1.0-4.0 10^3/uL Monocytes # (Auto) 0.3 0.0-1.0 10^3/uL Eosinophils # (Auto) 0.0 0.0-0.3 10^3/uL Basophils # (Auto) 0.0 0.0-0.1 10^3/uL Immature Granulocyte # (Auto) 0.0 0.0-0.1 10^3/uL Prothrombin Time 12.8 12.2-14.7 SEC INR Comment 0.9 0.8-1.4 Activated Partial Thromboplast Time 32 24-35 SEC Sodium Level 130 L 135-145 MMOL/L Potassium Level 2.9 L 3.6-5.0 MMOL/L Chloride Level 88 L 98-107 MMOL/L Carbon Dioxide Level 27 21-32 MMOL/L Anion Gap 15 H 5-14 MMOL/L Blood Urea Nitrogen 26 H 7-18 MG/DL Creatinine 3.36 H 0.60-1.30 MG/DL Estimat Glomerular Filtration Rate 15 BUN/Creatinine Ratio 8 Glucose Level 95 70-105 MG/DL Lactic Acid Level 1.22 0.50-2.00 MMOL/L Calcium Level 8.4 L 8.5-10.1 MG/DL Corrected Calcium 8.7 8.5-10.1 MG/DL Magnesium Level 2.0 1.6-2.4 MG/DL Total Bilirubin 0.2 0.1-1.0 MG/DL Aspartate Amino Transf (AST/SGOT) 167 H 5-34 U/L Alanine Aminotransferase (ALT/SGPT) 38 0-55 U/L Alkaline Phosphatase 60 40-136 U/L Myoglobin 3095.0 H 10.0-92.0 NG/ML Troponin I < 0.30 <0.30 NG/ML Pro-B-Type Natriuretic Peptide 210.5 H <75.0 PG/ML Total Protein 7.2 6.4-8.2 GM/DL Albumin 3.6 3.2-4.5 GM/DL Lipase 31 8-78 U/L My Orders Orders - NELLY BLACKMON MD Cbc With Automated Diff (09/06/21 16:45) Magnesium (09/06/21 16:45) Chest 1 View Ap/Pa Only (09/06/21 16:45) Ekg Tracing (09/06/21 16:45) Comprehensive Metabolic Panel (09/06/21 16:45) Myoglobin Serum (09/06/21 16:45) Protime With Inr (09/06/21 16:45) Partial Thromboplastin Time (09/06/21 16:45) O2 (09/06/21 16:45) Monitor-Rhythm Ecg Trace Only (09/06/21 16:45) Ed Iv/Invasive Line Start (09/06/21 16:45) Lipase (09/06/21 16:45) Troponin I Fs (09/06/21 16:45) Probnp Fs (09/06/21 16:45) Blood Culture (09/06/21 16:45) Sputum Culture (09/06/21 16:45) Lactic Acid Analyzer (09/06/21 16:45) Ct Head Wo (09/06/21 16:45) Ua Culture If Indicated (09/06/21 16:45) Stool Culture (09/06/21 16:45) Fecal Wbc (09/06/21 16:45) C Difficile Ag + Toxin A/B. (09/06/21 16:45) Isolation Central Supply Req (09/06/21 16:45) Ns Iv 1000 Ml (Sodium Chloride 0.9%) (09/06/21 16:49) Urine Culture (09/06/21 16:38) Landa Cath (09/06/21 17:41) Creatine Kinase (09/06/21 17:41) Valproic Acid (09/06/21 17:41) Ed Admission (Communication) (09/06/21 17:42) Ceftriaxone 1 Gm Pre-Mix (Rocephin 1 Gm (09/06/21 17:55) Ns Iv 1000 Ml (Sodium Chloride 0.9%) (09/06/21 17:55) Vital Signs/I&O 09/06/21 09/06/21 09/06/21 09/06/21 16:31 16:31 16:44 18:32 Temp 36.9 36.9 Pulse 78 77 70 80 82 Resp 18 18 B/P (MAP) 97/62 (74) 88/61 (70) 105/67 85/54 (64) 73/51 (58) Pulse Ox 99 99 O2 Delivery Nasal Cannula Nasal Cannula Nasal Cannula O2 Flow Rate 3.00 3.00 3.00 3.00 Capillary Refill : Progress Note #1: Progress Note Obtain basic labs and electrocardiogram to evaluate for possible arrhythmia. CT scan of her head to look for signs of intracranial hemorrhage her skull fracture. Chest x-ray to evaluate for possible pneumonia or lung mass or pleural effusion. Will give 1 L normal saline IV for hydration. If she has diarrhea here we will send lab for specimen studies and culture. Sputum culture if she coughs up any phlegm and sputum. Progress Note #2: Progress Note Labs show dehydration with elevated BUN and creatinine. Her creatinine is 3.36 with her baseline usually 0.9 to 1.0. Her chest xray does not show acute process. Her orthostatic vital signs do show hypotension. She may have been laying on the floor longer than she realized since she also has myoglobin >3,000. Troponin is negative at <0.3. She has some mild chronic hypokalemia at 2.9. Giving 1 L NS IVF for hydration and will check with Dr. Alonzo, alteration workroom supervisor physician for [facility], about admit for hydration and monitoring her renal function and myoglobin. Progress Note #3: Progress Note After discussion with Dr. Pitts she did accept the patient for admission. Will add on a Depakote level as well as CPK level. Place a Landa catheter to monitor her urine output. Add Rocephin for urinary tract infection. ECG Initial ECG Impression Date: Sep 06, 2021 Initial ECG Impression Time: 16:44 Initial ECG Rate: 75 Initial ECG Rhythm: Normal Sinus Initial ECG Comparisson: Unchanged Comment 6Normal sinus rhythm with a heart rate of 75 bpm. Short IN interval 66 ms. Normal R wave progression with early transition. No acute ST elevation. QT interval 402 ms with a QTc interval 449 ms. Appears similar to prior tracing. Diagnostic Imaging Diagonstic Imaging: Xray Plain Films/CT/US/NM/MRI: chest [facility] [place] [place] NAME: BRITTANY CEJA [employer] REC#: [id number] PT STATUS: REG ER : 1960 PHYSICIAN: NELLY BLACKMON MD ADMIT DATE: 09/06/21/ER FS Draft Date of Exam:09/06/21 CHEST 1 VIEW AP/PA ONLY INDICATION: Cough and shortness of breath. Syncope. COMPARISON: Prior study from 01/09/2021. FINDINGS: There is flattening of the diaphragms. There is blunting of the left costophrenic angle that likely reflects the region of scar. There is no large effusion. There is basilar interstitial changes and there are background features of centrilobular emphysema most significantly demonstrated within the upper lungs. There is a calcified right infrahilar lymph node or granuloma, unchanged from prior exam. There is no new alveolar consolidation or evidence of pneumonia. There is no pneumothorax. Pulmonary vascularity is appropriate. IMPRESSION: Region of pulmonary emphysema without radiographic findings of a new superimposed acute cardiopulmonary process. Dictated on workstation # [id number] Dict: 09/06/21 1706 Trans: 09/06/21 1710 [facility] [id number] Interpreted by: KYLEIGH ECHEVARRIA MD Electronically signed by: Reviewed: Reviewed by Me Diagonstic Imaging: CT Plain Films/CT/US/NM/MRI: head Comments [facility] [place] [place] NAME: BRITTANY CEJA [employer] REC#: [id number] PT STATUS: REG ER : 1960 PHYSICIAN: NELLY BLACKMON MD ADMIT DATE: 09/06/21/ER FS Signed Date of Exam:09/06/21 CT HEAD WO PROCEDURE: CT head without contrast. TECHNIQUE: Multiple contiguous axial images were obtained through the brain without the use of intravenous contrast. Auto Exposure Controls were utilized during the CT exam to meet ALARA standards for radiation dose reduction. INDICATION: Fall. Head injury and head pain. Comparison is made with a previous study from August 14, 2019. FINDINGS: There is age-related global volume loss. There are no CT findings of acute intracranial hemorrhage. There is no intracranial mass effect or shift. There is no hydrocephalus. There is no territorial loss of west-white differentiation or evidence of vasogenic edema. There are some mild microvascular changes present within the deep white matter. The posterior fossa demonstrates no acute process. Mastoids are clear. There is no fluid level in the paranasal sinuses. Orbital contents are unremarkable. No acute calvarial abnormality demonstrated. IMPRESSION: 1. Age-related volume loss with mild microvascular changes within the deep white matter. 2. No CT findings of hemorrhage, calvarial fracture, or acute intracranial abnormality. Dictated by: Dictated on workstation # [id number] Dict: 09/06/211718 Trans: 09/06/211735 [id number] Interpreted by: KYLEIGH ECHEVARRIA MD Electronically signed by: KYLEIGH ECHEVARRIA MD 09/06/211735 Reviewed: Reviewed by Me Departure Communication (Admissions) Time/Spoke to Admitting Phy: 17:36 d/w Dr. Alonzo and she accepted admit for [facility] service. She would like CPK added on for the concern for Rhabdomyolysis and place Landa to monitor urine output. Check Valproic acid as well since she takes that for seizures and make sure it is at an ok level with her acute kidney injury and having diarrhea she may not have been absorbing the medicine appropriately. Cardiac Step down unit for monitoring of her vitals and urine output Impression Primary Impression: Rhabdomyolysis Qualified Codes: T79.6XXA - Traumatic ischemia of muscle, initial encounter Additional Impressions: Orthostatic hypotension Dehydration Contusion of occipital region of scalp Qualified Codes: S00.03XA - Contusion of scalp, initial encounter Syncope Qualified Codes: R55 - Syncope and collapse Acute kidney injury Acute cystitis without hematuria Disposition: 30 STILL A PATIENT Condition: Stable Admissions Decision to Admit Reason: Admit from ER (General) Decision to Admit/Date: Sep 06, 2021 Time/Decision to Admit Time: 17:36 Departure-Patient Inst. Referrals: HUMAIRA,MERVIN MOON Primary Care Physician NELLY BLACKMON MD Sep 06, 2021 16:58
[2021-09-06 17:05] LABS: BILIRUBIN,URINE NEGATIVE (NEGATIVE); GLUCOSE, URINE (UA) NEGATIVE (NEGATIVE); KETONES,URINE NEGATIVE (NEGATIVE); LEUKOCYTE ESTERASE ,URINE TRACE (NEGATIVE); NITRITE,URINE NEGATIVE (NEGATIVE); PROTEIN,URINE 1+ (NEGATIVE)
[2021-09-06 17:09] LABS: INR 0.9 (0.8-1.4); PROTHROMBIN TIME PATIENT 12.8 SEC (12.2-14.7)
[2021-09-06 17:09] LABS: BACTERIA,URINE LARGE /HPF; CLARITY,URINE CLOUDY; WBC,URINE >100 /HPF
[2021-09-06 17:10] LABS: COLOR,URINE DARK YELLOW
--- NOTE | 2021-09-06 17:11 | Diagnostic Imaging Report ---
INDICATION: Cough and shortness of breath. Syncope. COMPARISON: Prior study from 01/09/2021. FINDINGS: There is flattening of the diaphragms. There is blunting of the left costophrenic angle that likely reflects the region of scar. There is no large effusion. There is basilar interstitial changes and there are background features of centrilobular emphysema most significantly demonstrated within the upper lungs. There is a calcified right infrahilar lymph node or granuloma, unchanged from prior exam. There is no new alveolar consolidation or evidence of pneumonia. There is no pneumothorax. Pulmonary vascularity is appropriate. IMPRESSION: Region of pulmonary emphysema without radiographic findings of a new superimposed acute cardiopulmonary process. Dictated by: Dictated on workstation # [id number]
[2021-09-06 17:14] LABS: BILIRUBIN,TOTAL 0.2 MG/DL (0.1-1.0); CALCIUM 8.4 MG/DL (8.5-10.1); CREATININE SERUM 3.36 MG/DL (0.60-1.30); POTASSIUM 2.9 MMOL/L (3.6-5.0); TOTAL PROTEIN 7.2 GM/DL (6.4-8.2)
[2021-09-06 17:15] LABS: ALBUMIN 3.6 GM/DL (3.2-4.5)
--- NOTE | 2021-09-06 17:31 | Diagnostic Imaging Report ---
PROCEDURE: CT head without contrast. TECHNIQUE: Multiple contiguous axial images were obtained through the brain without the use of intravenous contrast. Auto Exposure Controls were utilized during the CT exam to meet ALARA standards for radiation dose reduction. INDICATION: Fall. Head injury and head pain. Comparison is made with a previous study from August 14, 2019. FINDINGS: There is age-related global volume loss. There are no CT findings of acute intracranial hemorrhage. There is no intracranial mass effect or shift. There is no hydrocephalus. There is no territorial loss of west-white differentiation or evidence of vasogenic edema. There are some mild microvascular changes present within the deep white matter. The posterior fossa demonstrates no acute process. Mastoids are clear. There is no fluid level in the paranasal sinuses. Orbital contents are unremarkable. No acute calvarial abnormality demonstrated. IMPRESSION: 1. Age-related volume loss with mild microvascular changes within the deep white matter. 2. No CT findings of hemorrhage, calvarial fracture, or acute intracranial abnormality. Dictated by: Dictated on workstation # [id number]
[2021-09-06] MEDS ORDERED: cefTRIAXone 1 GM PRE-MIX 50 ML IV STA (17:55)
[2021-09-06 19:53] LABS: VALPROIC ACID 88.3 UG/ML (50.0-100.0)
[2021-09-06] MEDS ORDERED: diphenhydrAMINE 50 MG/ML INJ (BENADRYL) IVP PRN (20:00)
[2021-09-06] MEDS ORDERED: ANTACID SUSP 30 ML UDC (MYLANTA) PO PRN (20:00)
[2021-09-06] MEDS ORDERED: PATIENT MAY USE OWN MEDS, ALL PO SCH (20:00)
[2021-09-06] MEDS ORDERED: MELATONIN 3 MG TABLET PO PRN (20:00)
[2021-09-06] MEDS ORDERED: ONDANSETRON 4 MG/2 ML (SDV) Z0FRAN IV PRN (20:00)
[2021-09-06] MEDS ORDERED: polyethylene glycoL POWDER 17 GM (MIRALAX) PACK PO PRN (20:00)
[2021-09-06] MEDS ORDERED: ONDANSETRON 4 MG (ZOFRAN) ORAL DISSOLVE TAB PO PRN (20:00)
[2021-09-06] MEDS ORDERED: NALOXONE 0.4 MG/ML 1 ML (NARCAN) VIAL IV PRN (20:00)
[2021-09-06] MEDS ORDERED: HYDROcodone/APAP 5 MG/325 MG (LORTAB) TAB PO PRN (20:00)
[2021-09-06] MEDS ORDERED: HYDROmorphone 2 MG/ML VIAL (DILAUDID) IVP PRN (20:00)
[2021-09-06] MEDS ORDERED: diphenhydrAMINE 25 MG TAB (BENADRYL) PO PRN (20:00)
[2021-09-06] MEDS ORDERED: BISACODYL 10 MG SUPP (DULCOLAX) PR PRN (20:00)
[2021-09-06] MEDS ORDERED: NS IV 1000 ML 1,000 ML ONE (20:19)
[2021-09-06] MEDS: NS IV 1000 ML 1,000 ML IV SCH (20:24)
[2021-09-06] MEDS: DOCUSATE SODIUM 100 MG (COLACE) CAP PO SCH (21:00)
[2021-09-06] MEDS ORDERED: FURO20TA4 PO (23:28)
[2021-09-06] MEDS ORDERED: LOSA100T57 PO (23:28)
[2021-09-06] MEDS ORDERED: DIVA500T15 PO (23:28)
[2021-09-06] MEDS ORDERED: DULO60CA59 PO (23:28)
[2021-09-06] MEDS ORDERED: LORA-404 PO (23:28)
[2021-09-06] MEDS ORDERED: TRZ50T PO (23:28)
[2021-09-06] MEDS ORDERED: PANT40TA52 PO (23:28)
[2021-09-06] MEDS ORDERED: METO50TA15 PO (23:28)
[2021-09-07] MEDS: NS IV 1000 ML 1,000 ML IV SCH ×3 (04:15→20:03)
[2021-09-07 05:28] LABS: BASOPHILS % (AUTO) 0 % (0-10); EOSINOPHILS % (AUTO) 0 % (0-10); MEAN CORPUSCULAR VOLUME 86 fL (80-99); MEAN PLATELET VOLUME 10.6 fL (9.0-12.2); MONOCYTES # (AUTO) 0.2 10^3/uL (0.0-1.0)
[2021-09-07 05:30] LABS: HEMATOCRIT 31 % (35-52); HEMOGLOBIN 10.6 g/dL (11.5-16.0); LYMPHOCYTES % (AUTO) 39 % (12-44); MEAN CORPUSCULAR HEMOGLOBIN 29 pg (25-34); MEAN CORPUSCULAR HGB CONC 34 g/dL (32-36); MONOCYTES % (AUTO) 8 % (0-12); NEUTROPHILS # (AUTO) 1.4 10^3/uL (1.8-7.8); NEUTROPHILS % (AUTO) 52 % (42-75); PLATELET COUNT 110 10^3/uL (130-400); WHITE BLOOD COUNT 2.7 10^3/uL (4.3-11.0)
[2021-09-07 05:42] LABS: ALBUMIN 2.9 GM/DL (3.2-4.5)
[2021-09-07 05:43] LABS: CALCIUM 7.2 MG/DL (8.5-10.1)
[2021-09-07 05:45] LABS: TOTAL PROTEIN 5.7 GM/DL (6.4-8.2)
[2021-09-07 05:47] LABS: BILIRUBIN,TOTAL 0.2 MG/DL (0.1-1.0)
[2021-09-07 05:48] LABS: CREATININE SERUM 2.77 MG/DL (0.60-1.30)
[2021-09-07] MEDS: ACETAMINOPHEN 325 MG TABLET PO PRN (06:00)
--- NOTE | 2021-09-07 06:29 | History & Physical-Hospitalist ---
History of Present Illness HPI/Chief Complaint Chief complaint: Found down at home History of present illness: This is a 61-year-old white female who has history of bipolar disorder who presented to the [facility] ER via EMS after found down at home for an undetermined amount of time. She lives alone. She has no recollection of what exactly happened and has no idea how long she laid there. She was found to have acute kidney injury with creatinine of 3.3 making urine after given IV fluid in the ER. She was also found to have a UTI. At this current time she is feeling better. We will transfer her down to fourth floor. Source: patient, RN/MD, EMS Exam Limitations: clinical condition Date Seen 09/07/21 Time Seen by a Provider: 11:00 Attending Physician Griselda Alonzo DO PCP Valentin,Keanu MOON Referring Physician Date of Admission Sep 06, 2021 at 19:23 Home Medications & Allergies Home Medications Reviewed patient Home Medication Reconciliation performed by pharmacy medication reconciliations nursing technician and/or nursing. Patients Allergies have been reviewed. Allergies Allergies Coded Allergies Sulfa (Sulfonamide Antibiotics) (Verified Allergy, Unknown, 08/14/19) Past Uyfsivq-Mjprwp-Jmjqdo Hx Patient Social History Marrital Status: single Employed/Student: unemployed Tobacco Use?: Yes Tobacco type used: Cigarettes Smoking Status: Current Everyday Smoker Smokeless Tobacco Frequency: Never a User Use of E-Cig and/or Vaping dev: No Substance use?: No Alcohol Use?: No Pt feels they are or have been: Yes Immunizations Up To Date Date of Influenza Vaccine: May 03, 2021 First/Initial COVID19 Vaccinat: Yes Second COVID19 Vaccination Chaz: Yes Seasonal Allergies Seasonal Allergies: No Current Status status: No status: No Advance Directives: No Communicates: Verbally Primary Language: Turkish Preferred Spoken Language: Turkish Is interpretation needed?: No Implanted or Applied Medical D: None Past Medical History Surgeries: Coronary Stent, Hysterectomy Asthma, Chronic Bronchitis, COPD, Emphysema Heart Attack, High Cholesterol, 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 Back Injury, Chronic Back Pain Anxiety, Bipolar, Depression Blood Disorders: No Review of Systems Constitutional: see HPI, dizziness, malaise, weakness EENTM: no symptoms reported Respiratory: no symptoms reported Cardiovascular: no symptoms reported Gastrointestinal: no symptoms reported Genitourinary: decreased output Musculoskeletal: back pain, joint pain Skin: no symptoms reported Psychiatric/Neurological: Anxiety, Emotional Problems All Other Systems Reviewed Negative Unless Noted: Yes Physical Exam Physical Exam Vital Signs Vital Signs - First Documented 09/06/21 16:31 Temp 36.9 Pulse 78 Resp 18 B/P (MAP) 97/62 (74) Pulse Ox 99 O2 Delivery Nasal Cannula O2 Flow Rate 3.00 Capillary Refill : Less Than 3 Seconds Height, Weight, BMI Height: '" Weight: lbs. oz. kg; 29.38 BMI Method: General Appearance: No Apparent Distress, Chronically ill Eyes: Right Eye Normal Inspection, Right Eye PERRL HEENT: PERRL/EOMI, Normal ENT Inspection, Pharynx Normal, Moist Mucous Membranes Neck: Full Range of Motion, Normal Inspection, Non Tender Respiratory: Chest Non Tender, Lungs Clear, No Accessory Muscle Use, No Respiratory Distress, Decreased Breath Sounds Cardiovascular: Regular Rate, Rhythm, No Edema, No Gallop, No JVD, No Murmur, Normal Peripheral Pulses Gastrointestinal: Normal Bowel Sounds, No Organomegaly, No Pulsatile Mass, Non Tender, Soft Back: Normal Inspection, No CVA Tenderness, No Vertebral Tenderness Extremity: Normal Capillary Refill, Normal Inspection, Normal Range of Motion, Non Tender, No Calf Tenderness, No Pedal Edema Neurologic/Psychiatric: Alert, Oriented x3, No Motor/Sensory Deficits, Normal Mood/Affect, sack filler II-XII Norm as Tested, Motor Weakness (Generalized) Skin: Normal Color, Warm/Dry Lymphatic: No Adenopathy Results Results/Procedures Labs Laboratory Tests 09/06/21 16:44 09/07/21 04:56 09/08/21 04:37 Patient resulted labs reviewed. Assessment/Plan Admission Diagnosis Assessment: Found down at home for undetermined amount of time Acute kidney injury Acute rhabdomyolysis UTI COPD Current smoker 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 Hyperlipidemia Plan: IV fluid Move to fourth floor Monitor kidney function UTI treatment Admission Status: Inpatient Order (span 2 midnights) Reason for Inpatient Admission: Acute kidney failure Diagnosis/Problems Diagnosis/Problems (1) Syncope Status: Acute Qualifiers: Syncope type: vasovagal syncope Qualified Codes: R55 - Syncope and collaps e (2) Orthostatic hypotension Status: Acute (3) Acute cystitis without hematuria Status: Acute (4) Acute kidney injury Status: Acute (5) Dehydration Status: Acute (6) Rhabdomyolysis Status: Acute Qualifiers: Rhabdomyolysis type: traumatic Encounter type: initial encounter Qu alified Codes: T79.6XXA - Traumatic ischemia of muscle, initial encounter GRISELDA ALONZO DO Sep 07, 2021 06:29
[2021-09-07 07:45] VITALS: BP 101/61
[2021-09-07] MEDS: DOCUSATE SODIUM 100 MG (COLACE) CAP PO SCH ×2 (07:53→20:01)
[2021-09-07] MEDS: KCL 20 MEQ TAB (K-DUR) PO SCH (08:20)
--- NOTE | 2021-09-07 09:37 | Physical Therapy Evaluation ---
PT Evaluation-General Medical Diagnosis Admission Date Sep 06, 2021 at 19:23 Medical Diagnosis: rhabdomyolisis, Onset Date: Sep 06, 2021 Therapy Diagnosis Therapy Diagnosis: impaired mobility Precautions Precautions/Isolations: Fall Prevention, Standard Precautions Weight Bear Status Right Lower Extremity: Right Weight Bearing/Tolerated Left Lower Extremity: Left Weight Bearing/Tolerated Referral Physician: Griselda Alonzo DO Reason for Referral: Evaluation/Treatment Medical History Additional Medical History Past Medical History Surgeries: Coronary Stent, Hysterectomy Asthma, Chronic Bronchitis, COPD, Emphysema Heart Attack, High Cholesterol, 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 9-Xrehdjstpg-yqhxjif completes the activity by him/herself with no assistance from a helper. 5-Set-up or Clean-up Assistance-helper sets up or cleans up; patient completes a ctivity. [place] assists only prior to or following the activity. 4-Supervision or Touching Assistance-helper provides verbal cues and/or touching/steadying and/or contact guard assistance as patient completes activity. Assistance may be provided throughout the activity or intermittently. 3-Partial/Moderate Assistance-helper does LESS THAN HALF the effort. [place] lifts, holds or supports trunk or limbs, but provides less than half the effort. 2-Substantial/Maximal Assistance-helper does MORE THAN HALF the effort. [place] lifts or holds trunk or limbs and provides more than half the effort. 1-Wmnxxtazn-nqvhhz does ALL the effort. Patient does none of the effort to complete the activity. Or, the assistance of 2 or more helpers is required for the patient to complete the activity. If activity was not attempted, code reason: 7-Patient Refused. 9-Not Applicable-not attempted and the patient did not perform the activity before the current illness, exacerbation or injury. 10-Not Attempted due to Environmental Limitations-(lack of equipment, weather restraints, etc.). 88-Not Attempted due to Medical Conditions or Safety Concerns. Bed Mobility: 6 Transfers (B,C,W/C): 6 Gait: 6 Indoor Mobility (Ambulation): Independent Prior Devices Use: Walker PT Evaluation-Current Subjective Patient in bed pre tx, agrees to PT, has unrated low back pain (chronic) Pt/Family Goals "to get stronger" Objective Patient Orientation: Person, Confused, Place Attachments: Oxygen, Landa Catheter, IV ROM/Strength ROM Lower Extremities WNL Strength Lower Extremities LLE (hip flexion 3+/5, dorsiflexion 4/5), RLE (hip flexion 3+/5, dorsiflexion 4/5), knees not tested because patient states she has bad knees and it will hurt Sensory Hearing: Functional Sensation Right Lower Extremit: Intact Sensation Left Lower Extremity: Intact Transfers Roll Left to Right (QC): 6 Sit to Lying (QC): 6 Lying to Sitting/Side of Bed(Q: 6 Sit to Stand (QC): 4 Gait Does the Patient Walk?: Yes Mode of Locomotion: Walk Anticipated Mode of Locomotion: Walk Walk 10 feet (QC): 4 Distance: 40' Gait Assistive Device: FWW Comments/Gait Description slow ambulation, very shaky Balance Sitting Static: Normal Sitting Dynamic: Normal Standing Static: Fair Standing Dynamic: Fair Treatment BLE supine ex x20 (AP, HS) Assessment/Needs Patient in bed post tx with nurse call, phone, tray, all needs met, bed alarm on. Patient has impaired mobility, very shaky during ambulation, decreased endurance Rehab Potential: Fair PT Mcfp Goals Compensation And Benefits Administrator Goals PT Mcfp Goals Time Frame: Sep 14, 2021 Roll Left & Right (QC): 6 Sit to Lying (QC): 6 Lying-Sitting on Side/Bed(QC): 6 Sit to Stand (QC): 6 Chair/Hvl-lq-Kkozr Xfer(QC): 6 Walk 10 feet (QC): 6 Walk 50ft with 2 Turns (QC): 6 PT Plan Problem List Problem List: Activity Tolerance, Functional Strength, Safety, Balance, Gait, Transfer, ROM Treatment/Plan Treatment Plan: Continue Plan of Care Treatment Plan: Education, Functional Activity Manav, Functional Strength, Ga it, Safety, Therapeutic Exercise, Transfers Treatment Duration: Sep 14, 2021 Frequency: 6 times per week Estimated Hrs Per Day: .25 hour per day Patient and/or Family Agrees t: Yes Safety Risks/Education Patient Education: Gait Training, Transfer Techniques, Correct Positioning, Safety Issues Teaching Recipient: Patient Teaching Methods: Demonstration, Discussion Response to Teaching: Reinforcement Needed Discharge Recommendations Plan Patient will perform bed mobility and transfer training, balance and endurance training, functional strengthening, stair training, gait training, and education, to improve functional mobility and independence at home. Therapy Discharge Recommendati: Scheduled Assistance, Home & Family, Post Acute PT Time/GCodes Time In: 854 Time Out: 905 Total Billed Treatment Time: 11 Total Billed Treatment 1 visit EV 11' AARON JUNE PT Sep 07, 2021 09:37
[2021-09-07 11:30] VITALS: BP 120/70
[2021-09-07] MEDS: cefTRIAXone 1 GM PRE-MIX 50 ML IV SCH (20:02)
[2021-09-07] MEDS: RT--FLUTICASONE/SALMETEROL 232-14 (AIRDUO RespiCLICK) IH SCH (20:49)
[2021-09-07 21:00] VITALS: BP 138/79
[2021-09-08] VITALS (7 sets, daily range): BP systolic 121–160; BP diastolic 73–98
[2021-09-08] MEDS: NS IV 1000 ML 1,000 ML IV SCH ×2 (05:02→11:59)
[2021-09-08 05:49] LABS: BASOPHILS % (AUTO) 0 % (0-10); EOSINOPHILS % (AUTO) 0 % (0-10); HEMATOCRIT 30 % (35-52); HEMOGLOBIN 10.5 g/dL (11.5-16.0); LYMPHOCYTES % (AUTO) 36 % (12-44); MEAN CORPUSCULAR HEMOGLOBIN 30 pg (25-34); MEAN CORPUSCULAR HGB CONC 35 g/dL (32-36); MEAN CORPUSCULAR VOLUME 87 fL (80-99); MEAN PLATELET VOLUME 10.4 fL (9.0-12.2); MONOCYTES # (AUTO) 0.2 10^3/uL (0.0-1.0); MONOCYTES % (AUTO) 8 % (0-12); NEUTROPHILS # (AUTO) 1.5 10^3/uL (1.8-7.8); NEUTROPHILS % (AUTO) 55 % (42-75); PLATELET COUNT 141 10^3/uL (130-400); WHITE BLOOD COUNT 2.7 10^3/uL (4.3-11.0)
[2021-09-08] MEDS: KCL 20 MEQ TAB (K-DUR) PO SCH (05:53)
[2021-09-08 06:01] LABS: ALBUMIN 2.8 GM/DL (3.2-4.5); POTASSIUM 3.1 MMOL/L (3.6-5.0)
[2021-09-08 06:02] LABS: CALCIUM 7.7 MG/DL (8.5-10.1)
[2021-09-08 06:03] LABS: TOTAL PROTEIN 5.5 GM/DL (6.4-8.2)
[2021-09-08 06:05] LABS: BILIRUBIN,TOTAL 0.2 MG/DL (0.1-1.0)
[2021-09-08 06:07] LABS: CREATININE SERUM 1.21 MG/DL (0.60-1.30)
--- NOTE | 2021-09-08 07:42 | Progress Note - Hospitalist ---
Subjective HPI/CC On Admission Date Seen by Provider: Sep 08, 2021 Time Seen by Provider: 10:00 Chief complaint: Found down at home History of present illness: This is a 61-year-old white female who has history of bipolar disorder who presented to the [place] [facility] via EMS after found down at home for an undetermined amount of time. She lives alone. She has no recollection of what exactly happened and has no idea how long she laid there. She was found to have acute kidney injury with creatinine of 3.3 making urine after given IV fluid in the ER. She was also found to have a UTI. At this current time she is feeling better. We will transfer her down to fourth floor. Subjective/Events-last exam Patient much better Kidney function normal Restarting home meds Discontinue the catheter We will continue therapy Review of Systems General: Fatigue, Malaise Focused Exam Lactate Level 09/06/21 16:44: Lactic Acid Level 1.22 Objective Exam Vital Signs Vital Signs Date Time Temp Pulse Resp B/P (MAP) Pulse Ox O2 Delivery O2 Flow Rate FiO2 09/08/21 14:18 36.4 84 22 156/88 (110) 94 Nasal Cannula 4.00 Capillary Refill : Less Than 3 Seconds General Appearance: No Apparent Distress, WD/WN, Chronically ill Respiratory: Lungs Clear, Normal Breath Sounds Cardiovascular: Regular Rate, Rhythm Neurologic/Psychiatric: Alert, Oriented x3, No Motor/Sensory Deficits, Normal Mood/Affect Results/Procedures Lab Laboratory Tests 09/08/21 04:37 09/08/21 04:57 Patient resulted labs reviewed. Assessment/Plan Assessment and Plan Assess & Plan/Chief Complaint Assessment: Found down at home for undetermined amount of time Acute kidney injury Acute rhabdomyolysis UTI COPD Current smoker 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 Hyperlipidemia Plan: IV fluid Move to fourth floor Monitor kidney function UTI treatment 09/08/21: Home meds Continue IV fluids but slowed down Check meds Diagnosis/Problems Diagnosis/Problems (1) Syncope Status: Acute Qualifiers: Syncope type: vasovagal syncope Qualified Codes: R55 - Syncope and collapse (2) Orthostatic hypotension Status: Acute (3) Acute cystitis without hematuria Status: Acute (4) Acute kidney injury Status: Acute (5) Dehydration Status: Acute (6) Rhabdomyolysis Status: Acute Qualifiers: Rhabdomyolysis type: traumatic Encounter type: initial encounter Qualified Codes: T79.6XXA - Traumatic ischemia of muscle, initial encounter REINIER LOVE DO Sep 08, 2021 07:42
[2021-09-08] MEDS: DOCUSATE SODIUM 100 MG (COLACE) CAP PO SCH ×2 (08:00→21:07)
[2021-09-08] MEDS: POTASSIUM CL 10MEQ/50ML IVPB 50 ML IV SCH ×4 (08:14→11:59)
[2021-09-08] MEDS: ACETAMINOPHEN 325 MG TABLET PO PRN ×2 (08:15→21:08)
[2021-09-08] MEDS: RT--FLUTICASONE/SALMETEROL 232-14 (AIRDUO RespiCLICK) IH SCH (08:44)
[2021-09-08] MEDS: meTOprolol TARTRATE 50 MG (LOPRESSOR) TAB PO SCH (21:08)
[2021-09-08] MEDS: traZODone 50 MG (DESYREL) TAB PO SCH (21:08)
[2021-09-08] MEDS: LORazepam 0.5 MG (ATIVAN) TABLET PO SCH (21:08)
[2021-09-08] MEDS: cefTRIAXone 1 GM PRE-MIX 50 ML IV SCH (21:09)
[2021-09-09 00:11] VITALS: BP 145/85
[2021-09-09] MEDS: NS IV 1000 ML 1,000 ML IV SCH (02:08)
[2021-09-09 03:48] VITALS: BP 133/83
[2021-09-09] MEDS: KCL 20 MEQ TAB (K-DUR) PO SCH (05:57)
[2021-09-09 06:44] LABS: BASOPHILS % (AUTO) 1 % (0-10); EOSINOPHILS % (AUTO) 1 % (0-10); HEMATOCRIT 33 % (35-52); HEMOGLOBIN 11.8 g/dL (11.5-16.0); LYMPHOCYTES # (AUTO) 2.5 10^3/uL (1.0-4.0); LYMPHOCYTES % (AUTO) 61 % (12-44); MEAN CORPUSCULAR HEMOGLOBIN 32 pg (25-34); MEAN CORPUSCULAR HGB CONC 36 g/dL (32-36); MEAN CORPUSCULAR VOLUME 88 fL (80-99); MEAN PLATELET VOLUME 10.2 fL (9.0-12.2); MONOCYTES # (AUTO) 0.3 10^3/uL (0.0-1.0); MONOCYTES % (AUTO) 7 % (0-12); NEUTROPHILS # (AUTO) 1.2 10^3/uL (1.8-7.8); NEUTROPHILS % (AUTO) 30 % (42-75); PLATELET COUNT 230 10^3/uL (130-400); WHITE BLOOD COUNT 4.1 10^3/uL (4.3-11.0)
[2021-09-09 06:52] LABS: ALBUMIN 3.4 GM/DL (3.2-4.5); POTASSIUM 3.5 MMOL/L (3.6-5.0)
[2021-09-09 06:54] LABS: CALCIUM 8.4 MG/DL (8.5-10.1)
[2021-09-09 06:55] LABS: TOTAL PROTEIN 6.7 GM/DL (6.4-8.2)
[2021-09-09 06:57] LABS: BILIRUBIN,TOTAL 0.3 MG/DL (0.1-1.0)
[2021-09-09 06:58] LABS: CREATININE SERUM 0.85 MG/DL (0.60-1.30)
[2021-09-09 08:00] VITALS: BP 125/71
[2021-09-09] MEDS ORDERED: FLUT16SP22 NS (08:38)
[2021-09-09] MEDS ORDERED: LEVO25TA80 PO (08:38)
[2021-09-09] MEDS ORDERED: ALBU90AE PO (08:38)
[2021-09-09] MEDS ORDERED: DIVA-74 PO (08:38)
[2021-09-09] MEDS ORDERED: ROSU40TA23 PO (08:41)
[2021-09-09] MEDS: LORazepam 0.5 MG (ATIVAN) TABLET PO SCH ×2 (08:42→20:30)
[2021-09-09] MEDS: DULoxetine 30 MG (CYMBALTA) CAP PO SCH (08:42)
[2021-09-09] MEDS: meTOprolol TARTRATE 50 MG (LOPRESSOR) TAB PO SCH ×2 (08:43→20:30)
[2021-09-09] MEDS: PANTOPRAZOLE 40 MG (PROTONIX) TAB PO SCH (08:43)
[2021-09-09] MEDS: DOCUSATE SODIUM 100 MG (COLACE) CAP PO SCH ×2 (08:43→20:29)
[2021-09-09] MEDS ORDERED: FLUT1BLS12 PO (08:46)
[2021-09-09] MEDS ORDERED: FEXO180T84 PO (08:51)
[2021-09-09] MEDS ORDERED: ACET-2267 PO (08:53)
[2021-09-09] MEDS ORDERED: IBUP-2473 PO (08:54)
[2021-09-09] MEDS ORDERED: DIVALPROEX EXT RELEASE 500 MG (DEPAKOTE ER) TAB PO SCH (09:00)
[2021-09-09] MEDS: RT--FLUTICASONE/SALMETEROL 232-14 (AIRDUO RespiCLICK) IH SCH ×2 (09:01→20:49)
[2021-09-09] MEDS ORDERED: MUPI22OI2 TOP (09:03)
--- NOTE | 2021-09-09 11:08 | Progress Note - Hospitalist ---
NIA GALLEGO U 09/09/21 1108: Subjective HPI/CC On Admission Date Seen by Provider: Sep 09, 2021 Time Seen by Provider: 10:00 Chief complaint: Found down at home History of present illness: This is a 61-year-old white female who has history of bipolar disorder who presented to the [place] ER via EMS after found down at home for an undetermined amount of time. She lives alone. She has no recollection of what exactly happened and has no idea how long she laid there. She was found to have acute kidney injury with creatinine of 3.3 making urine after given IV fluid in the ER. She was also found to have a UTI. At this current time she is feeling better. We will transfer her down to fourth floor. Subjective/Events-last exam Patient is laying comfortably in bed. She expresses wanting to go home as soon as she can. She has been able to stool and urinate. She has no dysuria or urinary frequency. Review of Systems General: No Chills, No Night Sweats HEENT: No Head Aches, No Visual Changes Pulmonary: No Dyspnea, No Cough Cardiovascular: No: Chest Pain, Palpitations Gastrointestinal: No: Nausea, Vomiting, Abdominal Pain, Diarrhea, Constipation Genitourinary: No Dysuria, No Frequency, No Incontinence, No Hematuria Neurological: No: Weakness, Numbness Focused Exam Lactate Level 09/06/21 16:44: Lactic Acid Level 1.22 Objective Exam Vital Signs Vital Signs Date Time Temp Pulse Resp B/P (MAP) Pulse Ox O2 Delivery O2 Flow Rate FiO2 09/09/21 09:01 92 Nasal Cannula 3.00 09/09/21 08:00 35.6 71 18 125/71 (89) Capillary Refill : Less Than 3 Seconds General Appearance: No Apparent Distress, WD/WN HEENT: Normal ENT Inspection Neck: Full Range of Motion, Normal Inspection Respiratory: Chest Non Tender, Normal Breath Sounds, No Accessory Muscle Use Cardiovascular: Regular Rate, Rhythm, No Gallop, No Murmur Gastrointestinal: Normal Bowel Sounds, Non Tender, Soft Rectal: Deferred Back: Normal Inspection Extremity: Normal Inspection, Normal Range of Motion Neurologic/Psychiatric: Alert, Oriented x3 Skin: Normal Color, Warm/Dry Results/Procedures Lab Laboratory Tests 09/09/21 06:17 Patient resulted labs reviewed. Assessment/Plan Assessment and Plan Assess & Plan/Chief Complaint IRENA - secondary to rhabdomyolysis (CK 5000s, improved) - Cr back to normal - stop IV fluids today UTI - urine cx grew ecoli - continue IV ceftriaxone Hypokalemia - likely secondary to IRENA - replace - continue to monitor COPD - Airduo - back to bL of 3L O2 - RT will see her HTN - Lopressor 50 Debility - PT/OT RGISELDA LOVE DO 09/10/21 0525: Subjective Subjective/Events-last exam Pt is doing a lot better Overall much improved Remains on 3L of oxygen Creatinine now normal at 0.85 Will help lock IV fluid bone worker will look at option of disposition Review of Systems General: Fatigue, Malaise Objective Exam General Appearance: No Apparent Distress, WD/WN, Chronically ill Respiratory: Lungs Clear, Normal Breath Sounds Cardiovascular: Regular Rate, Rhythm Neurologic/Psychiatric: Alert, Oriented x3 Assessment/Plan Assessment and Plan Assess & Plan/Chief Complaint Disposition Supervisory-Addendum Brief Verification & Attestation Participated in pt care: history, MDM, physical Personally performed: exam, history, MDM, supervision of care Care discussed with: Medical Student Procedures: n/a Results interpretation: Verified all documentation Verification and Attestation of Medical Student E/M Service A medical student performed and documented this service in my presence. I re viewed and verified all information documented by the medical student and made modifications to such information, when appropriate. I personally performed the physical exam and medical decision making. Griselda Love, Sep 10, 2021,05:24 NIA GALLEGO Sep 09, 2021 11:08 GRISELDA LOVE DO Sep 10, 2021 05:25
--- NOTE | 2021-09-09 11:41 | Physical Therapy Daily Note ---
PT Daily Note-Current Subjective Patient presented sitting up in bed and agreed to walk with physical therapy. Patient reports that she doesn't need to walk with a walker Mental Status Patient Orientation: Person, Place, Situation Attachments: Oxygen (3L NC) Transfers SCALE: Activities may be completed with or without assistive devices. 9-Wpqlwfcirl-zpbepmu completes the activity by him/herself with no assistance from a helper. 5-Set-up or Clean-up Assistance-helper sets up or cleans up; patient completes activity. [place] assists only prior to or following the activity. 4-Supervision or Touching Assistance-helper provides verbal cues and/or touching/steadying and/or contact guard assistance as patient completes activity. Assistance may be provided throughout the activity or intermittently. 3-Partial/Moderate Assistance-helper does LESS THAN HALF the effort. [place] lifts, holds or supports trunk or limbs, but provides less than half the effort. 2-Substantial/Maximal Assistance-helper does MORE THAN HALF the effort. [place] lifts or holds trunk or limbs and provides more than half the effort. 1-Yiqckdkan-nfsqsp does ALL the effort. Patient does none of the effort to complete the activity. Or, the assistance of 2 or more helpers is required for the patient to complete the activity. If activity was not attempted, code reason: 7-Patient Refused. 9-Not Applicable-not attempted and the patient did not perform the activity before the current illness, exacerbation or injury. 10-Not Attempted due to Environmental Limitations-(lack of equipment, weather restraints, etc.). 88-Not Attempted due to Medical Conditions or Safety Concerns. Sit to Stand (QC): 6 Chair/Rbd-ng-Lutrl Xfer(QC): 6 Patient is independent for transfers Weight Bearing Right Lower Extremity: Right Weight Bearing/Tolerated Left Lower Extremity: Left Weight Bearing/Tolerated Gait Training Does the Patient Walk?: Yes Distance: 500' Walk 10 feet (QC): 6 Walk 50 ft with 2 Turns(QC): 6 Walk 150 ft (QC): 6 Gait Assistive Device: None Patient is independent for ambulation Assessment Patient ambulated for 500' independently without an AD. Patient is independent for bed mobility and transfers. Patient was given longer O2 tubing so she could use the bathroom by herself. Patient is being d/c from therapy services due to independence with ambulation and transfers. PT Skilled Nursing Goals Manager Progressive Care Goals PT Skilled Nursing Goals Time Frame: Sep 14, 2021 Roll Left & Right (QC): 6 Sit to Lying (QC): 6 Lying-Sitting on Side/Bed(QC): 6 Sit to Stand (QC): 6 Chair/Slk-rk-Bgxjl Xfer(QC): 6 Walk 10 feet (QC): 6 Walk 50ft with 2 Turns (QC): 6 PT Plan Treatment/Plan Treatment Plan: Discontinue PT, goals met Treatment Plan: Education, Functional Activity Manav, Functional Strength, Gait, Safety, Therapeutic Exercise, Transfers Treatment Duration: Sep 14, 2021 Frequency: 6 times per week Estimated Hrs Per Day: .25 hour per day Patient and/or Family Agrees t: Yes Time/GCodes Time In: 1043 Time Out: 1055 Total Billed Treatment Time: 12 Total Billed Treatment 1 Visit FA 12 min ALYSHA MATUTE PT Sep 09, 2021 11:41
[2021-09-09 12:00] VITALS: BP 147/86
--- NOTE | 2021-09-09 14:15 | Occupational Therapy Eval ---
OT Evaluation-General/PLF Medical Diagnosis Admission Date Sep 06, 2021 at 19:23 Medical Diagnosis: rhabdomyolisis, Onset Date: Sep 06, 2021 Therapy Diagnosis Therapy Diagnosis: n/a Precautions Precautions/Isolations: Fall Prevention, Standard Precautions Referral Physician: Griselda Alonzo DO Referral Reason: Evaluation/Treatment Medical History Current History Pt reports she was found on the floor, unable to recall events prior. Found to have acute kidney injury and UTI. She states she lives alone in an apartment; elevator access. She is indep with adls and iadls. Laundry located outside of apartment unit. She uses a 4ww for ambulation. Reviewed History: Yes Social History Home: Apartment Current Living Status: Alone Entry Into Home: Elevator ADL-Prior Level of Function SCALE: Activities may be completed with or without assistive devices. 9-Jscgqfwcbk-zjfxrdl completes the activity by him/herself with no assistance from a helper. 5-Set-up or Clean-up Assistance-helper sets up or cleans up; patient completes activity. [place] assists only prior to or following the activity. 4-Supervision or Touching Assistance-helper provides verbal cues and/or touching/steadying and/or contact guard assistance as patient completes activity. Assistance may be provided throughout the activity or intermittently. 3-Partial/Moderate Assistance-helper does LESS THAN HALF the effort. [place] lifts, holds or supports trunk or limbs, but provides less than half the effort. 2-Substantial/Maximal Assistance-helper does MORE THAN HALF the effort. [place] lifts or holds trunk or limbs and provides more than half the effort. 6-Kwtnlvvnu-zbojnt does ALL the effort. Patient does none of the effort to complete the activity. Or, the assistance of 2 or more helpers is required for the patient to complete the activity. If activity was not attempted, code reason: 7-Patient Refused. 9-Not Applicable-not attempted and the patient did not perform the activity before the current illness, exacerbation or injury. 10-Not Attempted due to Environmental Limitations-(lack of equipment, weather restraints, etc.). 88-Not Attempted due to Medical Conditions or Safety Concerns. Self Care: Independent Functional Cognition: Independent DME/Equipment: Grab Bars, Tall Toilet, Tub/Shower OT Current Status Subjective Denies pain, agreeable to treatment. Appearance Pt left sitting side of bed, all needs within reach. Mental Status/Objective Patient Orientation: Person, Place, Situation Attachments: IV, Oxygen (3L (baseline)) Current Hand Dominance: Right Upper Extremity ROM WNL Upper Extremity Strength 4/5 grossly ADL-Treatment Lower Body Dressing (QC): 5 On/Off Footwear (QC): 5 Toileting Hygiene (QC): 6 Pt resting in bed at OT arrival. Able to sit EOB without assist. Extra effort to don socks, but no physical assistance required. She stood and ambulated to bathroom, no AD. Supervision for safety. No unsteadiness observed. Good awareness of o2 line. Pt was able to perform all steps of toileting (including transfer) without assist. Pt denies any self care concerns. No further OT services warranted at this time. 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 2=Patient will verbalize/demonstrate understanding of assistive d evices/modifications for ADL. 3=Patient will improve strength/tolerance for activity to enable patient to perform ADL's. OT Education/Plan Problem List/Assessment Assessment: No Skilled OT Needs ID'd Discharge Recommendations Plan/Recommendations: Discontinue OT Treatment Plan/Plan of Care Treatment,Training & Education: Yes Patient would benefit from OT for education, treatment and training to promote independence in ADL's, mobility, safety and/or upper extremity function for ADL's. Plan of Care: ADL Retraining Treatment Duration: Sep 09, 2021 Frequency: 1 time per week Estimated Hrs Per Day: .25 hour per day Agreement: Yes Rehab Potential: Fair Time/GCodes Start Time: 13:31 Stop Time: 13:39 Total Time Billed (hr/min): 8 Billed Treatment Time 1 visit Kia Conklin OT Sep 09, 2021 14:15
[2021-09-09 15:25] VITALS: BP 149/83
--- NOTE | 2021-09-09 18:32 | Physician Query Clarification ---
Physician Query-General Query to Physician: The medical record reflects the following clinical evidence: Clinical Indicators: Documentation on day of admission of "SOA at rest" documented x 3 days, RR 18-27, >20 continuous for >24 hours, 02 sats 94 to 99% on 4L P/F = 752=557, 86% on RA, Risk Factor(s): Current smoker, COPD, IRENA, No History of Home 02 Treatment: Supplement 02 up to 4.5L, ICU monitoring, Breathing RX, 1. Acute respiratory failure with hypoxia, Present on admission 2. Other explanation of clinical findings 3. Unable to determine (no explanation for clinical findings) Please clarify and document your clinical opinion in the progress notes and discharge summary including the definitive and/or presumptive diagnosis, (suspected or probable), related to the above clinical findings. Please include clinical findings supporting your diagnosis. Aspen Walker MSN, RN Clinical Land Resource Specialist [phone] [email or web address] PHYSICIAN RESPONSE: Based on the clinical findings in the record, please respond to the query above on this document as an addendum. Physician Response: Physician Response 1 If you have questions please contact: Legal Summer Intern: Ext: Thank you for your time and cooperation. Clinical Land Resource Specialist/Legal Summer Intern This is a permanent part of the medical record ASPEN WALKER Sep 09, 2021 18:32 REINIER LOEV DO Sep 09, 2021 20:18
[2021-09-09 20:20] VITALS: BP 159/83
[2021-09-09] MEDS: cefTRIAXone 1 GM PRE-MIX 50 ML IV SCH (20:30)
[2021-09-09] MEDS: traZODone 50 MG (DESYREL) TAB PO SCH (20:30)
[2021-09-09] MEDS ORDERED: DIVALPROEX EXT RELEASE 250 MG (DEPAKOTE ER) TAB PO SCH (21:00)
[2021-09-10 00:18] VITALS: BP 133/80
[2021-09-10 04:32] VITALS: BP 111/72
[2021-09-10 06:04] LABS: BASOPHILS % (AUTO) 0 % (0-10); EOSINOPHILS # (AUTO) 0.1 10^3/uL (0.0-0.3); EOSINOPHILS % (AUTO) 2 % (0-10); HEMATOCRIT 30 % (35-52); HEMOGLOBIN 10.8 g/dL (11.5-16.0); LYMPHOCYTES # (AUTO) 1.3 10^3/uL (1.0-4.0); LYMPHOCYTES % (AUTO) 46 % (12-44); MEAN CORPUSCULAR HEMOGLOBIN 32 pg (25-34); MEAN CORPUSCULAR HGB CONC 36 g/dL (32-36); MEAN CORPUSCULAR VOLUME 88 fL (80-99); MEAN PLATELET VOLUME 9.8 fL (9.0-12.2); MONOCYTES # (AUTO) 0.3 10^3/uL (0.0-1.0); MONOCYTES % (AUTO) 11 % (0-12); NEUTROPHILS # (AUTO) 1.1 10^3/uL (1.8-7.8); NEUTROPHILS % (AUTO) 40 % (42-75); PLATELET COUNT 256 10^3/uL (130-400); WHITE BLOOD COUNT 2.9 10^3/uL (4.3-11.0)
[2021-09-10] MEDS: KCL 20 MEQ TAB (K-DUR) PO SCH (06:10)
[2021-09-10 06:19] LABS: ALBUMIN 3.2 GM/DL (3.2-4.5); POTASSIUM 3.1 MMOL/L (3.6-5.0)
[2021-09-10 06:21] LABS: CALCIUM 8.4 MG/DL (8.5-10.1)
[2021-09-10 06:22] LABS: TOTAL PROTEIN 6.3 GM/DL (6.4-8.2)
[2021-09-10 06:24] LABS: BILIRUBIN,TOTAL 0.3 MG/DL (0.1-1.0)
[2021-09-10 06:25] LABS: CREATININE SERUM 0.79 MG/DL (0.60-1.30)
[2021-09-10] MEDS: RT--FLUTICASONE/SALMETEROL 232-14 (AIRDUO RespiCLICK) IH SCH (07:41)
[2021-09-10 08:00] VITALS: BP 150/84
[2021-09-10] MEDS: meTOprolol TARTRATE 50 MG (LOPRESSOR) TAB PO SCH (08:57)
[2021-09-10] MEDS: LORazepam 0.5 MG (ATIVAN) TABLET PO SCH (08:57)
[2021-09-10] MEDS: DOCUSATE SODIUM 100 MG (COLACE) CAP PO SCH (08:57)
[2021-09-10] MEDS: PANTOPRAZOLE 40 MG (PROTONIX) TAB PO SCH (08:57)
[2021-09-10] MEDS: DULoxetine 30 MG (CYMBALTA) CAP PO SCH (08:57)
[2021-09-10] MEDS ORDERED: POTA10CA43 PO (10:27)
--- NOTE | 2021-09-10 10:28 | Discharge Summary ---
Discharge Summary Hospital Course Was the Problem List Reviewed?: Yes Problems/Dx: (1) Syncope Status: Acute Qualifiers: Qualified Codes: R55 - Syncope and collapse (2) Orthostatic hypotension Status: Acute (3) Acute cystitis without hematuria Status: Acute (4) Acute kidney injury Status: Acute (5) Dehydration Status: Acute (6) Rhabdomyolysis Status: Acute Qualifiers: Qualified Codes: T79.6XXA - Traumatic ischemia of muscle, initial encounter Hospital Course Date of Admission: Sep 06, 2021 at 19:23 Admission Diagnosis : Family Physician/Provider: Keanu Hanson MD Date of Discharge: 09/10/21 Discharge Diagnosis: Found down at home, acute rhabdomyolysis, UTI, acute kidney injury, bipolar, smoker, chronic hypoxemia maintained on supplemental oxygen Hospital Course: Hospital Course: Judy Arellano is 61y/o F with a PMH of bipolar disorder who presented to the [place] ER via EMS after found down at home for an undetermined amount of time. She has no recollection of what exactly happened and has no idea how long she laid there. She was found to have acute kidney injury with creatinine of 3.3 making urine after given IV fluid in the ER. She was also found to have a UTI. She was treated with IV flulids and antibiotics with improvements of her Cr. Her potassium has been low during her hospital stay so she will be sent home on a small dose of K. She will need follow-up labs to recheck this as this may be due to her IRENA. NIA GALLEGO U Labs and Pending Lab Test: Laboratory Tests 09/10/21 05:35: White Blood Count 2.9L, Red Blood Count 3.43L, Hemoglobin 10.8L, Hematocrit 30L, Mean Corpuscular Volume 88, Mean Corpuscular Hemoglobin 32, Mean Corpuscular Hemoglobin Concent 36, Red Cell Distribution Width 14.3, Platelet Count 256, Mean Platelet Volume 9.8, Immature Granulocyte % (Auto) 2, Neutrophils (%) (Auto) 40L, Lymphocytes (%) (Auto) 46H, Monocytes (%) (Auto) 11, Eosinophils (%) (Auto) 2, Basophils (%) (Auto) 0, Neutrophils # (Auto) 1.1L, Lymphocytes # (Auto) 1.3, Monocytes # (Auto) 0.3, Eosinophils # (Auto) 0.1, Basophils # (Auto) 0.0, Immature Granulocyte # (Auto) 0.1, Sodium Level 135, Potassium Level 3.1L, Chloride Level 97L, Carbon Dioxide Level 26, Anion Gap 12, Blood Urea Nitrogen 4L, Creatinine 0.79, Estimat Glomerular Filtration Rate 86, BUN/Creatinine Ratio 5, Glucose Level 90, Calcium Level 8.4L, Corrected Calcium 9.0, Total Bilirubin 0.3, Aspartate Amino Transf (AST/SGOT) 117H, Alanine Aminotransferase (ALT/SGPT) 65H, Alkaline Phosphatase 88, Total Creatine Kinase 1033H, Total Protein 6.3L, Albumin 3.2 Microbiology 09/06/21 Blood Culture - Preliminary, Resulted No growth 09/06/21 Urine Culture - Final, Complete Escherichia coli Corynebacterium coyleae Arthrobacter species Mixed Bacterial Jamilah Home Meds Active Reported Mupirocin 22 Gm Oint...g. 1 Applic TOP BID PRN PICKED UP BUT HAS NOT STARTED Ibuprofen 200 Mg Tablet 600 Mg PO Q8H PRN TAKES 3 (200MG) TABLETS Tylenol Extra Strength (Acetaminophen) 500 Mg Tablet 1,000 Mg PO Q8H PRN TAKES 2 (500MG) TABLETS Tamara Allergy (Fexofenadine HCl) 180 Mg Tablet 180 Mg PO DAILY PRN Fluticasone-Salmeterol 250-50 (Fluticasone Propion/Salmeterol) 1 Each Blst.w.dev 1 Puff PO BID Rosuvastatin Calcium 40 Mg Tablet 40 Mg PO HS Proair Respiclick (Albuterol Sulfate) 90 Mcg Aer.pow.ba 1 Puff PO Q6H PRN Fluticasone Propionate 16 Gm [place].susp 1 [place] NS DAILY PRN Divalproex Sodium 250 Mg Tablet.dr 250 Mg PO 8PM TAKES 250MG PLUS 500MG TO TOTAL 750MG Euthyrox (Levothyroxine Sodium) 25 Mcg Tablet 25 Mcg PO DAILY Divalproex Sodium ER (Divalproex Sodium) 500 Mg Tab.er.24h 500 Mg PO 8PM TAKES 500MG PLUS 250MG TO TOTAL 750MG Furosemide 20 Mg Tablet 20 Mg PO DAILY Duloxetine HCl 60 Mg Capsule.dr 60 Mg PO DAILY Trazodone HCl 50 Mg Tablet 50 Mg PO HS Losartan Potassium 100 Mg Tablet 100 Mg PO DAILY Metoprolol Tartrate 50 Mg Tablet 50 Mg PO BID Pantoprazole Sodium 40 Mg Tablet.dr 40 Mg PO DAILY Ativan (Lorazepam) 0.5 Mg Tablet 0.5 Mg PO BID Assessment/Pt Instructions PCP in 1 week Discharge Planning: <30 minutes discharge planning Discharge Instructions Discharge Diet: No Restrictions Activity as Tolerated: Yes Discharge Physical Examination Vital Signs Vital Signs Date Time Temp Pulse Resp B/P (MAP) Pulse Ox O2 Delivery O2 Flow Rate FiO2 09/10/21 08:00 36.2 72 18 150/84 (106) 90 Nasal Cannula 3.00 General Appearance: No Apparent Distress, WD/WN, Chronically ill Allergies: Coded Allergies: Sulfa (Sulfonamide Antibiotics) (Verified Allergy, Unknown, 08/14/19) Discharge Summary Date of Admission Sep 06, 2021 at 19:23 Date of Discharge Discharge Date: Sep 10, 2021 Admission Diagnosis Assessment: Found down at home for undetermined amount of time Acute kidney injury Acute rhabdomyolysis UTI COPD Current smoker 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 Hyperlipidemia Plan: IV fluid Move to fourth floor Monitor kidney function UTI treatment Discharge Diagnosis Disposition (1) Syncope Status: Acute Qualifiers: Qualified Codes: R55 - Syncope and collapse (2) Orthostatic hypotension Status: Acute (3) Acute cystitis without hematuria Status: Acute (4) Acute kidney injury Status: Acute (5) Dehydration Status: Acute (6) Rhabdomyolysis Status: Acute Qualifiers: Qualified Codes: T79.6XXA - Traumatic ischemia of muscle, initial encounter REINIER LOVE DO Sep 10, 2021 10:28
--- NOTE | 2021-09-10 11:17 | Progress Note ---
NIA GALLEGO 09/10/21 1117: Progress Note Hospital Course: Judy Arellano is 61y/o F with a PMH of bipolar disorder who presented to the [facility] via EMS after found down at home for an undetermined amount of time. She has no recollection of what exactly happened and has no idea how long she laid there. She was found to have acute kidney injury with creatinine of 3.3 making urine after given IV fluid in the ER. She was also found to have a UTI. She was treated with IV flulids and antibiotics with improvements of her Cr. Her potassium has been low during her hospital stay so she will be sent home on a small dose of K. She will need follow-up labs to recheck this as this may be due to her IRENA. GRISELDA ALONZO DO 09/11/21 0519: Supervisory-Addendum Brief Verification & Attestation Participated in pt care: history, MDM, physical Personally performed: exam, history, MDM, supervision of care Care discussed with: Medical Student Procedures: n/a Results interpretation: Verified all documentation Verification and Attestation of Medical Student E/M Service A medical student performed and documented this service in my presence. I reviewed and verified all information documented by the medical student and made modifications to such information, when appropriate. I personally performed the physical exam and medical decision making. Griselda Alonzo, Sep 11, 2021,05:19 NIA GALLEGO Sep 10, 2021 11:17 GRISELDA ALONZO DO Sep 11, 2021 05:19
== END 2021-09-10 13:00 | disposition home or self-care (01) | DRG 682 ==
LOC: EDUNIT# 16:31 → ER FS 16:32 → CSD 19:23 → 4TH 09-08 13:55
PROVIDERS: ADMIT Internal Medicine; ATTEND Internal Medicine
PROC: 8E0ZXY6 Isolation (ICD-10-PCS; principal; 2021-09-06)
DX: N17.9 Acute kidney failure, unspecified (principal); J96.01 Acute respiratory failure with hypoxia; N30.01 Acute cystitis with hematuria; F31.9 Bipolar disorder, unspecified; I95.1 Orthostatic hypotension; E86.0 Dehydration; B96.20 Unspecified Escherichia coli [E. coli] as the cause of diseases classified elsewhere; E87.6 Hypokalemia; I10 Essential (primary) hypertension; E78.5 Hyperlipidemia, unspecified; T79.6XXA Traumatic ischemia of muscle, initial encounter; J43.9 Emphysema, unspecified; E78.00 Pure hypercholesterolemia, unspecified; F41.9 Anxiety disorder, unspecified; K21.9 Gastro-esophageal reflux disease without esophagitis; G40.909 Epilepsy, unspecified, not intractable, without status epilepticus; F17.210 Nicotine dependence, cigarettes, uncomplicated; S00.03XA Contusion of scalp, initial encounter; W18.30XA Fall on same level, unspecified, initial encounter; I25.2 Old myocardial infarction; Z95.5 Presence of coronary angioplasty implant and graft; Z79.899 Other long term (current) drug therapy
CPT/HCPCS: 36415; 51702; 70450; 71045; 80053; 80164; 81000; 82550; 83605; 83690; 83735; 83874; 83880; 84443; 84484; 85025; 85610; 85730; 87040; 87088; 87186; 93005; 93041; 94640; 94760

== ENCOUNTER 2022-10-08 10:30 | Emergency (ER) | payer MEDICARE ==
[~2022-10-08] VITALS: Ht 157.4 cm; Wt 62.2 kg
[~2022-10-08 10:30] MED LIST changes: +ACET-2267 PO; +ALBU90AE PO; +DIVA-74 PO; +DIVA500T15 PO; +DULO60CA59 PO; +FEXO180T84 PO; +FLUT16SP22 NS; +FLUT1BLS12 PO; +FURO20TA4 PO; +IBUP-2473 PO; +LEVO25TA80 PO; +LORA-404 PO; +LOSA100T57 PO; +METO50TA15 PO; +MUPI22OI2 TOP; +PANT40TA52 PO; +POTA10CA44 PO; +ROSU40TA23 PO; +TRZ50T PO
[2022-10-08] MEDS ORDERED: KETOROLAC 15 MG/ML VIAL IVP STA (10:48)
[2022-10-08] MEDS ORDERED: NS IV 1000 ML 1,000 ML IV STA (10:48)
--- NOTE | 2022-10-08 10:51 | ED General ---
General Chief Complaint: Back Problems Stated Complaint: COUGH; RT FLANK PAIN Nursing Triage Note: Patient c/o Rt. flank pain that started last night. Pt. denies any falls or injuries to her back. Pt. states she has had decreased urine output x 2 days. Pt. denies any diarrhea or Abd. pain. Source of Information: Patient Exam Limitations: No Limitations History of Present Illness Date Seen by Provider: Oct 08, 2022 Time Seen by Provider: 10:33 Initial Comments 62-year-old female presenting with complaints of 2 days of pain to her right back at the level of her kidney. She denies any fall or injury to cause the pain. She has pain wrapping around her right flank. She also states that she has decreased urine output for the last 2 days and was having pain to the point that she had trouble getting up and walking. She has some mild nausea that has prevented her from eating but has not been having any vomiting. She was seen on Thursday at urgent care and reports having a chest x-ray and told that she did not have pneumonia but was placed on levofloxacin 500 mg daily for 5 days for her COPD exacerbation. She uses oxygen chronically at home at 2 L but has had to increase it to 3 L due to her shortness of breath. She has not tried taking anything for the pain. She has had subjective fever with intermittent hot flashes and sweating but has not taken her temperature. Timing/Duration: 2-3 Days Severity: Severe Modifying Factors: worse with Movement Associated Systoms: No Chest Pain; Cough, Fever/Chills (subjective); No Headaches; Loss of Appetite, Malaise, Nausea/Vomiting (nausea but no vomiting); No Rash, No Seizure; Shortness of Air (chronic shortness of breath but felt it was increased in last few days); No Syncope; Weakness (generalized) Allergies and Home Medications Allergies Coded Allergies: Sulfa (Sulfonamide Antibiotics) (Verified Allergy, Unknown, 08/14/19) Patient Home Medication List Home Medication List Reviewed: Yes Acetaminophen (Tylenol Extra Strength) 500 Mg Tablet, 1,000 MG PO Q8H PRN for PAIN-MILD (1-4), (Reported) Entered as Reported by: CINDY EDMONDS on 09/09/21 0853 Albuterol Sulfate (Proair Respiclick) 90 Mcg Aer.pow.ba, 1 PUFF PO Q6H PRN for SHORTNESS OF BREATH, (Reported) Entered as Reported by: CINDY EDMONDS on 09/09/21 08 Divalproex Sodium (Divalproex Sodium ER) 500 Mg Tab.er.24h, 500 MG PO 8PM, (Reported) Entered as Reported by: Negra Branch on 09/06/212327 Divalproex Sodium (Divalproex Sodium) 250 Mg Tablet.dr, 250 MG PO 8PM, (Reported) Entered as Reported by: CINDY EDMONDS on 09/09/21 08 Duloxetine HCl (Duloxetine HCl) 60 Mg Capsule.dr, 60 MG PO DAILY, (Reported) Entered as Reported by: Negar Branch on 09/06/212327 Fexofenadine HCl (Tamara Allergy) 180 Mg Tablet, 180 MG PO DAILY PRN for ALLERGIES, (Reported) Entered as Reported by: CINDY EDMONDS on 09/09/21 08 Fluticasone Propion/Salmeterol (Fluticasone-Salmeterol 250-50) 1 Each Blst.w.dev, 1 PUFF PO BID, (Reported) Entered as Reported by: CINDY EDMONDS on 09/09/21 08 Fluticasone Propionate (Fluticasone Propionate) 16 Gm [place].susp, 1 SPRAY NS DAILY PRN for CONGESTION, (Reported) Entered as Reported by: CINDY EDMONDS on 09/09/21 08 Furosemide (Furosemide) 20 Mg Tablet, 20 MG PO DAILY, (Reported) Entered as Reported by: Negra Branch on 09/06/212327 Levothyroxine Sodium (Euthyrox) 25 Mcg Tablet, 25 MCG PO DAILY, (Reported) Entered as Reported by: CINDY EDMONDS on 09/09/21837 Lorazepam (Ativan) 0.5 Mg Tablet, 0.5 MG PO BID, (Reported) Entered as Reported by: Negra Branch on 09/06/212327 Losartan Potassium (Losartan Potassium) 100 Mg Tablet, 100 MG PO DAILY, (Reported) Entered as Reported by: Negra Branch on 09/06/212327 Methocarbamol (Methocarbamol) 750 Mg Tablet, 750 MG PO Q8H PRN for flank pain/muscle spasm Prescribed by: NELLY BLACKMON on 10/08/22 1253 Metoprolol Tartrate (Metoprolol Tartrate) 50 Mg Tablet, 50 MG PO BID, (Reported) Entered as Reported by: Negra Branch on 09/06/212327 Mupirocin (Mupirocin) 22 Gm Oint...g., 1 APPLIC TOP BID PRN for SPIDER BITE, (Reported) Entered as Reported by: CINDY EDMONDS on 09/09/21 0903 Pantoprazole Sodium (Pantoprazole Sodium) 40 Mg Tablet.dr, 40 MG PO DAILY, (Reported) Entered as Reported by: Negra Branch on 09/06/212327 Potassium Chloride (Potassium Chloride) 10 Meq Capsule.er, 10 MEQ PO DAILY Prescribed by: REINIER LOVE on 09/10/21 1027 Rosuvastatin Calcium (Rosuvastatin Calcium) 40 Mg Tablet, 40 MG PO HS, (Reported) Entered as Reported by: CINDY EDMONDS on 09/09/21 0841 Trazodone HCl (Trazodone HCl) 50 Mg Tablet, 50 MG PO HS, (Reported) Entered as Reported by: Negra Branch on 09/06/212327 Review of Systems Review of Systems Constitutional: see HPI EENTM: no symptoms reported Respiratory: see HPI, cough, dyspnea on exertion, short of breath (chronic but feels it has been increased in last few days); No stridor; wheezing Cardiovascular: No chest pain Gastrointestinal: nausea; No vomiting Genitourinary: decreased output; No dysuria; pain (right CVA and flank) Musculoskeletal: back pain (acute on chronic low back pain and pain over right CVA and flank) Skin: No rash Psychiatric/Neurological: Anxiety Past Troozwe-Hfcqmq-Pmozsp Hx Patient Social History Tobacco Use?: Yes Tobacco type used: Cigarettes Smoking Status: Current Everyday Smoker Use of E-Cig and/or Vaping dev: No Substance use?: No Alcohol Use?: No Pt feels they are or have been: No Immunizations Up To Date Influenza Vaccine Up-to-Date: No; Not Current First/Initial COVID19 Vaccinat: Yes Second COVID19 Vaccination Chaz: Yes Seasonal Allergies Seasonal Allergies: No Past Medical History Surgery/Hospitalization HX: GERD; Depression; High Cholesterol; DM; Anxiety; HTN; COPD; Seizures, Tobacco abuse Surgeries: Yes Coronary Stent, Hysterectomy Respiratory: Yes Asthma, Chronic Bronchitis, COPD, Emphysema Cardiac: Yes Heart Attack, High Cholesterol, 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 Neurological: No 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 oz. kg; 25.00 BMI Method: General Appearance: Anxious, Chronically ill HEENT: PERRL/EOMI, Pharynx Normal; No Moist Mucous Membranes (slightly dry mucous membranes) Neck: Full Range of Motion, Normal Inspection, Non Tender, Supple Respiratory: Chest Non Tender, No Accessory Muscle Use, No Respiratory Distress, Decreased Breath Sounds, Wheezing Cardiovascular: Regular Rate, Rhythm, Normal Peripheral Pulses Gastrointestinal: Normal Bowel Sounds, No Pulsatile Mass, Non Tender, Soft Rectal: Deferred Back: CVA Tenderness (R); No Vertebral Tenderness Extremity: Normal Capillary Refill Neurologic/Psychiatric: Alert, Oriented x3, aerial gunner II-XII Norm as Tested Skin: Normal Color, Warm/Dry Focused Exam Lactate Level 10/08/22 10:55: Lactic Acid Level 2.79*H Lactic Acid Level Laboratory Tests Test 10/08/22 10:55 Lactic Acid Level 2.79 MMOL/L (0.50-2.00) *H Progress/Results/Core Measures Suspected Sepsis SIRS Temperature: Pulse: 88 Respiratory Rate: 18 Laboratory Tests 10/08/22 10:55: White Blood Count 5.0 Blood Pressure 114 /84 Mean: 94 10/08/22 10:55: Lactic Acid Level 2.79*H Laboratory Tests 10/08/22 10:55: Creatinine 1.05, Platelet Count 203, Total Bilirubin 0.4 Results/Orders Lab Results Laboratory Tests Test 10/08/22 10:55 Range/Units White Blood Count 5.0 4.3-11.0 10^3/uL Red Blood Count 4.67 3.80-5.11 10^6/uL Hemoglobin 14.2 11.5-16.0 g/dL Hematocrit 42 35-52 % Mean Corpuscular Volume 89 80-99 fL Mean Corpuscular Hemoglobin 30 25-34 pg Mean Corpuscular Hemoglobin Concent 34 32-36 g/dL Red Cell Distribution Width 13.2 10.0-14.5 % Platelet Count 203 130-400 10^3/uL Mean Platelet Volume 10.3 9.0-12.2 fL Immature Granulocyte % (Auto) 0 % Neutrophils (%) (Auto) 40 L 42-75 % Lymphocytes (%) (Auto) 53 H 12-44 % Monocytes (%) (Auto) 5 0-12 % Eosinophils (%) (Auto) 2 0-10 % Basophils (%) (Auto) 1 0-10 % Neutrophils # (Auto) 2.0 1.8-7.8 10^3/uL Lymphocytes # (Auto) 2.6 1.0-4.0 10^3/uL Monocytes # (Auto) 0.3 0.0-1.0 10^3/uL Eosinophils # (Auto) 0.1 0.0-0.3 10^3/uL Basophils # (Auto) 0.0 0.0-0.1 10^3/uL Immature Granulocyte # (Auto) 0.0 0.0-0.1 10^3/uL Neutrophils % (Manual) 36 % Lymphocytes % (Manual) 58 % Monocytes % (Manual) 0 % Eosinophils % (Manual) 2 % Basophils % (Manual) 0 % Band Neutrophils 1 % Atypical Lymphocytes 2 % Blast Cells 1 % Urine Color YELLOW Urine Clarity CLEAR Urine pH 5.5 5-9 Urine Specific Stitzer >=1.030 1.016-1.022 Urine Protein 1+ H NEGATIVE Urine Glucose (UA) NEGATIVE NEGATIVE Urine Ketones NEGATIVE NEGATIVE Urine Nitrite NEGATIVE NEGATIVE Urine Bilirubin NEGATIVE NEGATIVE Urine Urobilinogen 1.0 < = 1.0 MG/DL Urine Leukocyte Esterase NEGATIVE NEGATIVE Urine RBC (Auto) 1+ H NEGATIVE Urine RBC RARE /HPF Urine WBC 0-2 /HPF Urine Squamous Epithelial Cells RARE /HPF Urine Crystals NONE /LPF Urine Bacteria NEGATIVE /HPF Urine Casts PRESENT /LPF Urine Hyaline Casts 2-5 H /LPF Urine Coarse Granular Casts 0-2 H /LPF Urine Mucus SMALL H /LPF Urine Culture Indicated NO Sodium Level 141 135-145 MMOL/L Potassium Level 3.7 3.6-5.0 MMOL/L Chloride Level 95 L 98-107 MMOL/L Carbon Dioxide Level 31 21-32 MMOL/L Anion Gap 15 H 5-14 MMOL/L Blood Urea Nitrogen 11 7-18 MG/DL Creatinine 1.05 0.60-1.30 MG/DL Estimat Glomerular Filtration Rate 60 BUN/Creatinine Ratio 10 Glucose Level 82 70-105 MG/DL Lactic Acid Level 2.79 *H 0.50-2.00 MMOL/L Calcium Level 9.5 8.5-10.1 MG/DL Corrected Calcium 9.2 8.5-10.1 MG/DL Magnesium Level 2.0 1.6-2.4 MG/DL Total Bilirubin 0.4 0.1-1.0 MG/DL Aspartate Amino Transf (AST/SGOT) 23 5-34 U/L Alanine Aminotransferase (ALT/SGPT) 10 0-55 U/L Alkaline Phosphatase 70 40-136 U/L C-Reactive Protein < 0.30 <0.50 MG/DL Total Protein 8.0 6.4-8.2 GM/DL Albumin 4.4 3.2-4.5 GM/DL My Orders Orders - NELLY BLACKMON MD Cbc With Automated Diff (10/08/22 10:48) Comprehensive Metabolic Panel (10/08/22 10:48) Blood Culture (10/08/22 10:48) Chest 1 View Ap/Pa Only (10/08/22 10:48) Magnesium (10/08/22 10:48) O2 (10/08/22 10:48) Ed Iv/Invasive Line Start (10/08/22 10:48) Sputum Culture (10/08/22 10:48) Monitor-Rhythm Ecg Trace Only (10/08/22 10:48) Crp Fs (10/08/22 10:48) Lactic Acid Analyzer (10/08/22 10:48) Ua Culture If Indicated (10/08/22 10:48) Ct Abdomen/Pelvis Wo (10/08/22 10:48) Ns Iv 1000 Ml (Sodium Chloride 0.9%) (10/08/22 10:48) Ketorolac Injection (Toradol Injection) (10/08/22 10:48) Manual Differential (10/08/22 10:55) Orphenadrine Inj (Ed Only) (Norflex Inje (10/08/22 12:51) Vital Signs/I&O 10/08/22 10/08/22 10/08/22 10:32 10:33 11:09 Temp 35.8 35.8 Pulse 88 88 Resp 18 18 B/P (MAP) 114/84 (94) 114/84 Pulse Ox 98 98 O2 Delivery Nasal Cannula Nasal Cannula Nasal Cannula O2 Flow Rate 2.00 2.00 2.00 FiO2 98 Capillary Refill : Blood Pressure Mean: 94 Progress Note #1: Progress Note Potential diagnosis of pyelonephritis, right lower lobe pneumonia, cholecystitis, musculoskeletal back pain, renal colic, kidney stones, colitis, diverticulitis. Obtain peripheral IV access and send labs for complete blood count, comprehensive metabolic profile, blood cultures, lactic acid, urinalysis with culture. Sputum culture if she happens to cough any mucus up. Placed on cardiac telemetry monitoring and initially my interpretation her heart rate is sinus rhythm in the 60s without ectopy. Initially her oxygen saturation was 87 to 88% with her home oxygen tank. Placed on supplemental oxygen 3 L/min here in the ED and her O2 sat came up to 98 to 100%. Obtain chest x-ray to look for signs of infiltrate or pneumonia or effusion or mass. CT scan of the abdomen and pelvis without IV contrast to look for kidney stones, inflammation around the kidney, colitis, diverticulitis, pyelonephritis, cholecystitis, pathology to cause her right CVA and flank pain. Administer normal saline 1 L IV fluid bolus for hydration, Toradol 15 mg IV for pain. She had reported nausea that was keeping her from eating but did not want any medication for nausea as she felt it was not that bad. She was drinking fluids on arrival to the ED. Progress Note #2: Time: 11:18 Progress Note On my personal review and interpretation of the 1 view chest x-ray she has no acute infiltrate or effusion. She does have some increased perihilar markings. On my review personal opinion on the CT scan of the abdomen pelvis without IV contrast it looks like she may have a approximately 4 mm kidney stone starting to go into the ureter on the right side. There was no significant hydronephrosi s or hydroureter. This could be a source of pain for her on right side. Awaiting radiology reading on her imaging. I reviewed the radiologist report of the imaging at 1135. They did not see any acute process in her chest x-ray. They did not report any acute process on her CT scan of the abdomen and pelvis to account for her right CVA pain. They did not feel the calcification I had seen on imaging was a kidney stone. Complete blood count had no acute significant abnormality to account for her complaints of pain and subjective hot flashes. Her white blood cell count was normal at 500 and hemoglobin was not showing anemia at 14.2. On her differential she did have increased lymphocytes of 53% with Neutrophils 40%. This might indicate a viral type infection. Progress Note #3: Time: 11:41 Progress Note Her urinalysis showed dehydration with specific gravity greater than 1.030. She did not have findings for infection as she had no nitrites, leukocyte esterase, white blood cells, bacteria present. Comprehensive metabolic profile did not show acute significant electrolyte abnormality or renal failure. She did have elevated lactic acid to 2.79 but this was felt to be more from dehydration as she had no focal findings for infection. On recheck of the patient she advises that her pain was improved with treatment here in the ED. She was counseled that her blood work had not shown signs of severe anemia or sepsis or electrolyte abnormality to account for her pain. Her urine was clear and did not show infection. She did show signs of dehydration with the urine being concentrated. Encourage her to drink more fluids and finish out the course of antibiotics that she was given through urgent care. Advised that I could do a steroid to try and help with her breathing and inflammation however patient refused that she says that she has been on steroids to many times in her life and did not want to take those this time. Encouraged to try alternating ice and heat to her back in case this is a musculoskeletal component and also given a dose of Norflex here in the ED and follow that up with methocarbamol 750 mg p.o. 3 times daily as needed muscle spasms and back pain. Encouraged to check back through the clinic for continued concerns. Diagnostic Imaging Diagonstic Imaging: Xray Plain Films/CT/US/NM/MRI: chest Comments [facility] [place] [place] NAME: BRITTANY CEJA [facility] REC#: [id number] PT STATUS: REG ER : 1960 PHYSICIAN: NELLY BLACKMON MD ADMIT DATE: 10/08/22/ER FS Draft Date of Exam:10/08/22 CHEST 1 VIEW AP/PA ONLY INDICATION: Cough and shortness of breath. EXAMINATION: Portable chest at 11:07 AM. FINDINGS: The heart size and pulmonary vascularity are normal. The lungs are clear. There are no effusions or pneumothoraces. IMPRESSION: Negative chest. Dictated on workstation # [id number] Dict: 10/08/22 1118 Trans: 10/08/22 1119 [id number] Interpreted by: CARLOS ESTRADA MD Electronically signed by: Reviewed: Reviewed by Me (I reviewed radiologist report at 1138) Diagonstic Imaging: CT Plain Films/CT/US/NM/MRI: abdomen, pelvis Comments [facility] [place], [place] NAME: BRITTANY CEJA [facility] REC#: [id number] PT STATUS: REG ER : 1960 PHYSICIAN: NELLY BLACKMON MD ADMIT DATE: 10/08/22/ER FS Draft Date of Exam:10/08/22 CT ABDOMEN/PELVIS WO EXAMINATION: CT abdomen and pelvis without contrast. TECHNIQUE: Multiple contiguous axial images were obtained through the abdomen and pelvis without the use of intravenous contrast. All CT scans use one or more of the following dose optimizing techniques: automated exposure control, MA and/or KvP adjustment based on patient size and exam type or iterative reconstruction. HISTORY: Right CVA and flank pain x 2 days, acute on chronic low back pain. COMPARISON: None available. FINDINGS: Lung bases: The lung bases are clear. Solid organs: The liver is normal. The gallbladder is normal. There is no biliary ductal dilation. Pancreas is normal. Spleen is normal. There is a 1.3 cm right adrenal nodule with Hounsfield units of -2, compatible with an adenoma. The kidneys are normal without visualized calculus or hydronephrosis. Bowel: The stomach and small bowel are normal without obstruction. There is scattered colonic diverticulosis. The appendix is normal. Peritoneum: There is no intraperitoneal free fluid or free air. No suspicious lymphadenopathy. Vasculature: Calcification of the aorta without aneurysm. Musculoskeletal: No suspicious osseous lesion or compression fracture. Pelvis: The uterus is surgically absent. No adnexal mass. The urinary bladder is normal. IMPRESSION: 1. No visualized renal calculus or hydronephrosis. 2. No other acute abnormality in the abdomen or pelvis. Dictated on workstation # [id number] Dict: 10/08/22 1118 Trans: 10/08/22 1128 [id number] Interpreted by: TEE ESTRADA DO Electronically signed by: Reviewed: Reviewed by Me (I reviewed the radiologist report at 1135) Departure Impression Primary Impression: Acute right flank pain Additional Impressions: Acute and chronic respiratory failure with hypoxia COPD with exacerbation Dehydration Disposition: HOME, SELF-CARE Condition: Stable Departure-Patient Inst. Decision time for Depature: 12:52 Referrals: SELFMERVIN MD (PCP) Primary Care Physician Patient Instructions: Flank Pain ED, Dehydration, Adult ED Add. Discharge Instructions: Your test today showed some dehydration but there was no acute infection in the kidney or urine. Try the muscle relaxer in addition to drinking more fluids to help with the pain around your kidney and right flank. Check back with primary care or [facility] if having continued symptoms. Finish out your course of antibiotics and try to increase amount of fluids that you are drinking to help with hydration. Consider protein or nutrition shake to try and help get some additional calories and protein in your system without having to eat a whole meal. All discharge instructions reviewed with patient and/or family. Voiced understanding. Scripts Methocarbamol (Methocarbamol) 750 Mg Tablet 750 MG PO Q8H PRN for flank pain/muscle spasm for 5 Days, #15 TAB 0 Refills Prov: NELLY BLACKMON MD 10/08/22 NELLY BLACKMON MD Oct 08, 2022 10:51
[2022-10-08 11:09] VITALS: BP 114/84
--- NOTE | 2022-10-08 11:19 | Diagnostic Imaging Report ---
INDICATION: Cough and shortness of breath. EXAMINATION: Portable chest at 11:07 AM. FINDINGS: The heart size and pulmonary vascularity are normal. The lungs are clear. There are no effusions or pneumothoraces. IMPRESSION: Negative chest. Dictated by: Dictated on workstation # [id number]
[2022-10-08 11:26] LABS: BASOPHILS % (AUTO) 1 % (0-10); EOSINOPHILS # (AUTO) 0.1 10^3/uL (0.0-0.3); EOSINOPHILS % (AUTO) 2 % (0-10); HEMATOCRIT 42 % (35-52); HEMOGLOBIN 14.2 g/dL (11.5-16.0); LYMPHOCYTES # (AUTO) 2.6 10^3/uL (1.0-4.0); LYMPHOCYTES % (AUTO) 53 % (12-44); MEAN CORPUSCULAR HEMOGLOBIN 30 pg (25-34); MEAN CORPUSCULAR HGB CONC 34 g/dL (32-36); MEAN CORPUSCULAR VOLUME 89 fL (80-99); MEAN PLATELET VOLUME 10.3 fL (9.0-12.2); MONOCYTES # (AUTO) 0.3 10^3/uL (0.0-1.0); MONOCYTES % (AUTO) 5 % (0-12); NEUTROPHILS % (AUTO) 40 % (42-75); PLATELET COUNT 203 10^3/uL (130-400)
--- NOTE | 2022-10-08 11:29 | Diagnostic Imaging Report ---
EXAMINATION: CT abdomen and pelvis without contrast. TECHNIQUE: Multiple contiguous axial images were obtained through the abdomen and pelvis without the use of intravenous contrast. All CT scans use one or more of the following dose optimizing techniques: automated exposure control, MA and/or KvP adjustment based on patient size and exam type or iterative reconstruction. HISTORY: Right CVA and flank pain x 2 days, acute on chronic low back pain. COMPARISON: None available. FINDINGS: Lung bases: The lung bases are clear. Solid organs: The liver is normal. The gallbladder is normal. There is no biliary ductal dilation. Pancreas is normal. Spleen is normal. There is a 1.3 cm right adrenal nodule with Hounsfield units of -2, compatible with an adenoma. The kidneys are normal without visualized calculus or hydronephrosis. Bowel: The stomach and small bowel are normal without obstruction. There is scattered colonic diverticulosis. The appendix is normal. Peritoneum: There is no intraperitoneal free fluid or free air. No suspicious lymphadenopathy. Vasculature: Calcification of the aorta without aneurysm. Musculoskeletal: No suspicious osseous lesion or compression fracture. Pelvis: The uterus is surgically absent. No adnexal mass. The urinary bladder is normal. IMPRESSION: 1. No visualized renal calculus or hydronephrosis. 2. No other acute abnormality in the abdomen or pelvis. Dictated by: Dictated on workstation # [id number]
[2022-10-08 11:30] LABS: BILIRUBIN,URINE NEGATIVE (NEGATIVE); CLARITY,URINE CLEAR; COLOR,URINE YELLOW; GLUCOSE, URINE (UA) NEGATIVE (NEGATIVE); KETONES,URINE NEGATIVE (NEGATIVE); LEUKOCYTE ESTERASE ,URINE NEGATIVE (NEGATIVE); NITRITE,URINE NEGATIVE (NEGATIVE); PH,URINE 5.5 (5-9); PROTEIN,URINE 1+ (NEGATIVE)
[2022-10-08 11:40] LABS: BACTERIA,URINE NEGATIVE /HPF; RBC,URINE RARE /HPF; SQUAMOUS EPITHELIAL CELL,UR RARE /HPF; WBC,URINE 0-2 /HPF
[2022-10-08 11:47] LABS: BUN/CREATININE RATIO 10; CALCIUM 9.5 MG/DL (8.5-10.1); CARBON DIOXIDE 31 MMOL/L (21-32); CHLORIDE 95 MMOL/L (98-107); CREATININE SERUM 1.05 MG/DL (0.60-1.30); GFR ESTIMATED 60; GLUCOSE 82 MG/DL (70-105); POTASSIUM 3.7 MMOL/L (3.6-5.0); SODIUM 141 MMOL/L (135-145)
[2022-10-08 11:48] LABS: ALANINE AMINOTRANSFERASE 10 U/L (0-55); ALBUMIN 4.4 GM/DL (3.2-4.5); ALKALINE PHOSPHATASE 70 U/L (40-136); BILIRUBIN,TOTAL 0.4 MG/DL (0.1-1.0)
[2022-10-08 12:02] LABS: ATYPICAL LYMPHOCYTES 2 %; BAND NEUTROPHILS 1 %; BASOPHILS % (MANUAL) 0 %; BLAST CELLS 1 %; EOSINOPHILS % (MANUAL) 2 %; LYMPHOCYTES % (MANUAL) 58 %; MONOCYTES % (MANUAL) 0 %; NEUTROPHILS % (MANUAL) 36 %
[2022-10-08] MEDS ORDERED: ORPHENADRINE 60 MG/2 ML (NORFLEX) AMP (ED ONLY) IVP STA (12:51)
[2022-10-08] MEDS ORDERED: METH-732 PO (12:53)
== END 2022-10-08 13:00 | disposition home or self-care (01) ==
LOC: EDUNIT# 10:30 → ER FS 10:32
DX: R10.9 Unspecified abdominal pain (principal); J96.21 Acute and chronic respiratory failure with hypoxia; J43.9 Emphysema, unspecified; E86.0 Dehydration; R74.02 Elevation of levels of lactic acid dehydrogenase [LDH]; M54.50 Low back pain, unspecified; F17.210 Nicotine dependence, cigarettes, uncomplicated; Z87.19 Personal history of other diseases of the digestive system
CPT/HCPCS: 36415; 71045; 74176; 80053; 81000; 83605; 83735; 85007; 85027; 86141; 87040; 93041

== ENCOUNTER → 2022-11-21 | Outpatient (CLI) | payer MEDICARE ==
[~2022-11-21] MED LIST changes: +METH-732 PO
--- NOTE | 2022-11-21 10:41 | Diagnostic Imaging Report ---
CLINICAL INDICATION: Patient with stenosis of the carotid artery. COMPARISON: Patient with chest pain and essential hypertension. EXAM: Real-time ultrasound carotid Doppler duplex imaging is performed bilaterally with multiple real-time grayscale images obtained in various projections. Additional spectral analysis and color Doppler duple images were also obtained. Peak systolic velocity, ICA/CCA peak systolic ratio, spectral analysis, and vascular morphology are studied. Findings: ARTERY VELOCITY Right Left CCA 0.56 m/s 0.62 m/s ICA 0.61 m/s 0.77 m/s ECA 0.64 m/s 0.69 m/s ICA/CCA 1.08 1.24 VERT.ART Antegrade Antegrade There is irregular atherosclerotic plaque involving the bilateral carotid arteries with no significant stenosis on grayscale imaging. IMPRESSION: There is mild bilateral carotid artery atherosclerotic disease with no grayscale or Doppler evidence of significant vascular stenosis. Dictated by: Dictated on workstation # [id number]
== END ==
LOC: RAD 08:41
PROVIDERS: ATTEND Physician Assistant
DX: I65.23 Occlusion and stenosis of bilateral carotid arteries (principal); I10 Essential (primary) hypertension; I25.10 Atherosclerotic heart disease of native coronary artery without angina pectoris
CPT/HCPCS: 93880

== ENCOUNTER → 2022-11-25 | Outpatient (CLI) | payer MEDICARE, OTHER | LOC: CARD 12:59 | PROVIDERS: ATTEND Physician Assistant | DX: I65.29 Occlusion and stenosis of unspecified carotid artery (principal); I10 Essential (primary) hypertension; I25.10 Atherosclerotic heart disease of native coronary artery without angina pectoris | CPT/HCPCS: 93306 ==

== ENCOUNTER → 2023-01-05 | Outpatient (CLI) | payer MEDICARE ==
[~2023-01-05] MED LIST changes: +CATHETER FLUSH 10 ML SYR IVP PRN; -LOSA100T57 PO; +LOSA100T58 PO; +REGADENOSON 0.4 MG/5 ML SYR (LEXISCAN) IV ONE
[2023-01-05 09:04] VITALS: BP 183/100
--- NOTE | 2023-01-06 08:17 | Cardiology Stress Test Report ---
Stress Test Report Date of Procedure/Referring: Date of Procedure: Jan 05, 2023 PCP Keanu Hanson MD Admitting Physician Admitting Physician: Attending Physician: Teresa Tang Baseline Heart Rate: 64 Baseline Blood Pressure: Blood Pressure Systolic: 183 Blood Pressure Diastolic: 100 Baseline Vitals Vital Signs Date Time Temp Pulse Resp B/P (MAP) Pulse Ox O2 Delivery O2 Flow Rate FiO2 01/05/23 09:04 82 183/100 (127) Baseline EKG: Baseline EKG: NSR Summary After explaining the procedure to the patient, she signed a consent and then brought to the stress nuclear laboratory. Patient received 0.4 mg Lexiscan for stress test, ECG, heart rate and blood pressure were monitored continuously. Resting and stress dose of radio tracer were injected, imaging was acquired and reviewed in short axis, horizontal long axis and vertical long axis views. TID: 1.04 SSS: 2 SDS: 2 EF: 76 Patient tolerated Lexiscan well Baseline hypertension persisted during test No significant ischemia or infarction noted on SPECT images Normal left ventricular size, ejection fraction 76% Copy Copies To 1: KEANU HANSON MD, BASHAR J MD Jan 06, 2023 08:17
== END ==
LOC: CARD 07:30
PROVIDERS: ATTEND Physician Assistant
DX: I65.29 Occlusion and stenosis of unspecified carotid artery (principal); I25.10 Atherosclerotic heart disease of native coronary artery without angina pectoris; I10 Essential (primary) hypertension
CPT/HCPCS: 78452; 93017; A9502

== ENCOUNTER 2023-02-18 12:07 | Day surgery (SDC) | payer MEDICARE ==
[~2023-02-18] VITALS: Ht 156 cm; Wt 64.0 kg
[~2023-02-18 12:07] MED LIST changes: -CATHETER FLUSH 10 ML SYR IVP PRN; -POTA10CA44 PO; +POTA10CA84 PO; -REGADENOSON 0.4 MG/5 ML SYR (LEXISCAN) IV ONE
[2023-02-18] MEDS ORDERED: NS IV 1000 ML 1,000 ML ONE (12:16)
[2023-02-18] MEDS ORDERED: HEParin (CATH LAB) 2,000 ML IV ONE (12:16)
[2023-02-18] MEDS ORDERED: LIDOCAINE 1% INJ 20 ML VIAL ONE (12:16)
[2023-02-18] MEDS ORDERED: NS IV 1000 ML 1,000 ML IV SCH ×2 (12:30→14:45)
--- NOTE | 2023-02-18 12:39 | Diagnostic Imaging Report ---
INDICATION: Cardiac disease. COMPARISON: 10/08/2022. FINDINGS: Right perihilar granulomatous calcifications chronic. No pneumonia, failure, effusion or pneumothorax. IMPRESSION: No acute appearing abnormality. Dictated by: Dictated on workstation # [id number]
[2023-02-18 12:40] VITALS: BP 149/104
[2023-02-18 13:00] LABS: HEMATOCRIT 39 % (35-52); HEMOGLOBIN 13.5 g/dL (11.5-16.0); MEAN CORPUSCULAR HEMOGLOBIN 31 pg (25-34); MEAN CORPUSCULAR HGB CONC 35 g/dL (32-36); MEAN CORPUSCULAR VOLUME 89 fL (80-99); MEAN PLATELET VOLUME 9.5 fL (9.0-12.2); PLATELET COUNT 213 10^3/uL (130-400); WHITE BLOOD COUNT 7.4 10^3/uL (4.3-11.0)
[2023-02-18 13:02] LABS: BILIRUBIN,URINE NEGATIVE (NEGATIVE); CLARITY,URINE CLEAR; COLOR,URINE YELLOW; GLUCOSE, URINE (UA) NEGATIVE (NEGATIVE); KETONES,URINE NEGATIVE (NEGATIVE); LEUKOCYTE ESTERASE ,URINE 1+ (NEGATIVE); NITRITE,URINE NEGATIVE (NEGATIVE); PROTEIN,URINE TRACE (NEGATIVE)
[2023-02-18 13:09] LABS: ALBUMIN 4.2 GM/DL (3.2-4.5); POTASSIUM 4.2 MMOL/L (3.6-5.0)
[2023-02-18 13:10] LABS: BACTERIA,URINE FEW /HPF; RBC,URINE RARE /HPF; SQUAMOUS EPITHELIAL CELL,UR 0-2 /HPF
[2023-02-18 13:10] LABS: CALCIUM 9.7 MG/DL (8.5-10.1)
[2023-02-18 13:12] LABS: TOTAL PROTEIN 7.3 GM/DL (6.4-8.2)
[2023-02-18 13:13] LABS: BILIRUBIN,TOTAL 0.3 MG/DL (0.1-1.0)
[2023-02-18 13:14] LABS: PROTHROMBIN TIME PATIENT 12.9 SEC (12.2-14.7)
[2023-02-18 13:15] LABS: CREATININE SERUM 0.78 MG/DL (0.60-1.30)
[2023-02-18] MEDS ORDERED: fentaNYL INJECTION 100 MCG/2 ML VIAL ONE (13:16)
[2023-02-18] MEDS ORDERED: MIDAZOLAM 5 MG/5 ML (VERSED) VIAL ONE (13:16)
[2023-02-18] MEDS ORDERED: NITRO DRIP 25000 MCG/D5W 250 ML IV ONE (13:25)
[2023-02-18] MEDS ORDERED: VERAPAMIL 5 MG/2 ML (CALAN) VIAL IV ONE (13:25)
[2023-02-18] MEDS ORDERED: HEParin 1000 UNIT/ML (10ML VIAL) FOR BOLUS ONE (13:25)
[2023-02-18] MEDS ORDERED: CLOPIDOGREL 300 MG TABLET PO ONE (14:22)
[2023-02-18] MEDS ORDERED: ASPIRIN 325 MG TABLET ONE (14:22)
--- NOTE | 2023-02-18 14:28 | Cardiac Procedure Note-CS/ASA ---
Pre-Procedure Note Pre-Op Procedure Note Date of Available H&P: Feb 17, 2023 Date H&P Reviewed: Feb 18, 2023 Time H&P Reviewed: 13:00 History & Physical: H&P Reviewed, Patient Examed, No changes noted Pre-Operative Diagnosis: CAD Moderate Sedation PreProcedure Time 13:00 ASA Score 3 Airway Lungs Heart ASA score ASA 1: a normal healthy patient ASA 2: a patient with a mild systemic disease (mid diabetes, controlled hypertension, obesity ASA 3: a patient with a severe systemic disease that limits activity (angina, COPD, prior Myocardial infarction) ASA 4: a patient with an incapacitating disease that is a constant threat to life (CHF, renal failure) ASA 5: a moribund patient not expected to survive 24 hrs. (ruptured aneurysm) ASA 6: a declared brain- patient whose organs are being harvested. For emergent operations, add the letter E after the classification Mallampati Classification Grade 3 Sedation Plan Analgesia, Amnesia, Plan communicated to team members, Discussed options with patient/fam, Discussed risks with patient/fam The patient is an appropriate candidate to undergo the planned procedure, sedation, and anesthesia. The patient immediately re-assessed prior to indication. JOCELYNN DILL MD Feb 18, 2023 14:28
--- NOTE | 2023-02-18 14:32 | Cardiac Cath Report ---
Cardiac Cath Report Physician (s)/Bank Consultant (s) Physician JOCELYNN DILL MD Pre-Procedure Diagnosis Pre-Procedure Diagnosis: CAD Post-Procedure Note Procedure Start Date: Feb 18, 2023 Name of Procedure: Left heart catheterization IFR to the right coronary artery Balloon angioplasty to the right coronary artery Findings/Procedure Note PROCEDURE NOTE: 62-year-old lady with history of coronary artery disease, has been having accelerating angina. I recommended cardiac catheterization possible PTCA. After explaining the procedure to the patient, all pros and cons were explained, all questions were answered. The patient signed the consent and then she was placed in the cardiac catheterization laboratory. Groin was prepped in SL fashion local anesthesia was used. Sheath placed in the right radial artery, [place] catheter was advanced to the left ventricular cavity, pressure was measured, pullback LV to aorta was done, engage the right and left coronary system, angiogram was done. Patient received a total of 6000 units of heparin, had 90% in-stent restenosis in the mid right coronary artery [place] right guide was used and I was unable to advance IFR wire I used BMW as a chelle wire to straighten the artery that was very tortuous then I advanced IFR wire and parked it distally. Baseline IFR was 0.82. I proceeded with noncompliant balloon 3 x 20 with multiple inflation. Post balloon angioplasty IFR was 0.91. Angiogram showed excellent results with 0% residual stenosis. At the end of the procedure the sheath was removed. Vascular band was used FINDINGS: Hemodynamics LV 134/16, end-diastolic pressure of 16 Aorta 148/86 mean of 102 ANATOMY: Left Main is free of obstructive disease Left Anterior Descending is tortuous artery with less than 10% stenosis Left Circumflex is tortuous artery nondominant artery with less than 10% stenosis Right Coronary Artery is a large dominant artery, tortuous artery heavily calcified with stents in the mid right coronary artery with 90% in-stent restenosis, IFR was 0.82. Successful balloon angioplasty using noncompliant 3 x 20 balloon postintervention IFR was 0.91. LV Gram was not done, pressure was measured PERCUTANEOUS INTERVENTION: Pre stenosis 90% Post Stenosis 0% Pre MOIZ flow 2 Post MOIZ flow 3 Dominance right coronary artery CONCLUSION: 90% in-stent restenosis in the mid right coronary artery that is heavily calcified and tortuous artery successful balloon angioplasty using 3 x 20 nonc ompliant balloon with 0% residual stenosis. Otherwise tortuous coronary system with some calcification with less than 10% stenosis Normal left ventricular end-diastolic pressure DISCUSSION AND RECOMMENDATION: Patient was started on aspirin and Plavix, continue to maximize medical therapy Anesthesia Type: Conscious Sedation Estimated blood loss (mL): 25 ml Contrast Amount: 75 ml Post-Procedure Diagnosis Post-operative diagnosis: Chest pain Coronary artery disease 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 Hyperlipidemia JOCELYNN DILL MD Feb 18, 2023 14:32
[2023-02-18] MEDS ORDERED: ASPI-1238 PO (14:37)
[2023-02-18] MEDS ORDERED: CLOP75TA28 PO (14:37)
--- NOTE | 2023-02-18 14:38 | Discharge Inst-Post CATH ---
Discharge Inst-CATH/EP Problems Reviewed?: Yes Post Cardiac Cath/EP D/C Inst Follow Up/Plan Appointment with Dr. Arango's office in 2 to 4 weeks <b>CARDIAC CATH/EP PROCEDURE DISCHARGE INSTRUCTIONS</b> ACTIVITY * Go Home directly and rest. * Limit activity of the leg (or wrist if it was used) for 7 days including aer obics, swimming, jogging, bicycling, etc. * Restrict stair-climbing for 7 days if possible, if not, climb up with your non-cath leg, then bring together on the same step. * Avoid lifting, pushing, pulling or excessive movement of the affected extremi ty for 7 days. * Customary sexual activity may be resumed after 2 days-use caution not to use a position that strains or causes pain to the affected extremity. * No driving for 24 hours. * NO SMOKING. * Avoid straining for bowel movements for 7 days. * Gentle walking on level ground is allowed. * Returning to work will depend on the type of procedure and the results. Your doctor will discuss this with you. CALL YOUR DOCTOR FOR ANY OF THE FOLLOWING: *If bleeding from the puncture site occurs- Apply gentle pressure to site with clean cloth and call your doctor or EMS. * If a knot or lump forms under the skin, increases in size, or causes pain. * If bruising appears to be worsening or moving further down your leg instead of disappearing. * Temperature above 101 F. CARE OF YOUR GROIN INCISION; * Bruising or purple discoloration of the skin near the puncture site is common. * You may shower only, no bathtub bathing for 5 days. Be careful to avoid slipping as your leg may feel stiff. * If a closure device was used on your femoral artery, please see the attached guide regarding care of the device and your leg. * Leave dressing on FOR 24 hours. CARE OF YOUR WRIST INCISION; * Bruising or purple discoloration of the skin near the puncture site is common. * You may shower. * DO NOT submerge wrist. * Leave dressing on FOR 24 hours. JOCELYNN ARANGO MD Feb 18, 2023 14:38
[2023-02-18 15:43] VITALS: BP 106/78
[2023-02-19] MEDS ORDERED: CLOPIDOGREL 75 MG TABLET PO SCH (09:00)
[2023-02-19] MEDS ORDERED: ASPIRIN enteric coated 81MG TABLET PO SCH (09:00)
== END 2023-02-18 18:26 | disposition home or self-care (01) ==
LOC: CATH 12:07 → CSD 15:00 → CATH 18:26
PROVIDERS: ATTEND Internal Medicine Cardiovascular Disease
DX: I25.10 Atherosclerotic heart disease of native coronary artery without angina pectoris (principal); I10 Essential (primary) hypertension; E78.2 Mixed hyperlipidemia; J44.9 Chronic obstructive pulmonary disease, unspecified; E03.9 Hypothyroidism, unspecified; F31.9 Bipolar disorder, unspecified; F17.210 Nicotine dependence, cigarettes, uncomplicated; Z99.81 Dependence on supplemental oxygen; Z95.5 Presence of coronary angioplasty implant and graft; Z79.899 Other long term (current) drug therapy; Z79.890 Hormone replacement therapy
CPT/HCPCS: 71045; 80053; 80061; 81000; 85027; 85347; 85610; 85730; 87081; 87088; 92920; 93005; 93458; 93571; C1725; C1769 ×3; C1887; C1894; 36415